=== PATIENT | male | born 1940 | race Two or more races ===

== ENCOUNTER → 2016-06-19 | Outpatient (CLI) | payer MEDICARE, MEDICAID ==
[~2016-06-19] MED LIST: ALP2OP10 BOTH EYES; ASPI325T32 PO; ASPI81TA3 PO; ATEN-51 PO; ATOR10TA65 PO; BUSP10TA2 PO; CAPT25TA3 PO; CHOL10009 PO; DICL2.5D11 BOTH EYES; ESCI5SOL PO; GABA-526 PO; GLU5XL PO; HYDR-905 PO; LINE600T PO; LYRI25 PO; METF850T PO; PANT40TA4 PO; [UNRECOGNIZED DRUG - OTHER]
--- NOTE | 2016-06-19 11:26 | RADRPT ---
PROCEDURE: Limited x-ray of both lower extremities. CLINICAL INDICATION: Bilateral leg pain. TECHNIQUE: Single frontal view of both lower extremities was obtained from the hips to the calves. COMPARISON: None. FINDINGS: There are moderate degenerative changes of the hips with joint space narrowing and osteophytes. The re are moderate degenerative changes of the knees with osteophytes and medial joint compartment narr owing. There is chondrocalcinosis. IMPRESSION: 1. Moderate degenerative changes of the hips and knees. 2. Chondrocalcinosis. RPTAT: QQ .Cristofer Montiel MD, MD Date Time Electronically viewed and signed by .Cristofer Montiel MD, MD on 06/19/2016 11:26 .R/
== END | disposition home or self-care (01) ==
LOC: HKI 10:36
PROVIDERS: ATTEND Orthopaedic Surgery
DX: Z01.818 Encounter for other preprocedural examination (principal); M17.11 Unilateral primary osteoarthritis, right knee; E11.9 Type 2 diabetes mellitus without complications; I10 Essential (primary) hypertension; E78.5 Hyperlipidemia, unspecified; F41.9 Anxiety disorder, unspecified; F32.9 Major depressive disorder, single episode, unspecified
CPT/HCPCS: 77073; 86850; 86870; 86900; 86901; 87081; G0463

== ENCOUNTER 2016-06-25 07:53 | Inpatient (IN) | payer MEDICARE, OTHER ==
[2016-06-25] VITALS (23 sets, daily range): BP systolic 121–194; BP diastolic 55–85; PULSE 55–76; RESP 9–20; Ht 157.5 cm; Wt 77.9 kg
[~2016-06-25] VITALS: Ht 157.5 cm; Wt 77.9 kg
[2016-06-25] MEDS ORDERED: oxyCODONE (CR) 10 MG TAB [oxyCONTIN] X1 DOSE PO ONE (08:00)
[2016-06-25] MEDS ORDERED: LACTATED RINGER'S 1,000 ML IV SCH (08:00)
[2016-06-25] MEDS ORDERED: CEFAZOLIN 2GM/50 ML (PMX) 50 ML X1 BEFORE INCISION IVPB ONE (08:00)
[2016-06-25] MEDS ORDERED: TRANEXAMIC ACID IV ONE (08:00)
[2016-06-25] MEDS ORDERED: CELECOXIB 400 MG PO X1 DOSE PO ONE (08:00)
[2016-06-25] MEDS ORDERED: PAIN COCKTAIL-CEFUROXIME IRR SCH ×7 (08:00)
[2016-06-25] MEDS ORDERED: traMADOL 50 MG TAB X 1 DOSE PO ONE (08:00)
[2016-06-25] MEDS ORDERED: SOD CHLORIDE 0.9% IV ONE (08:00)
[2016-06-25] MEDS ORDERED: TRANEXAMIC ACID 780 MG in SOD CHLORIDE 0.9% 100 ML IVPB SCH (08:00)
[2016-06-25] MEDS ORDERED: BUPIVACAINE LIPOSOME/PF 266 MG/20 ML VIAL INFIL SCH (08:00)
[2016-06-25] MEDS ORDERED: PREGABALIN 300 MG PO X1 PO ONE (08:00)
[2016-06-25] MEDS ORDERED: GLU5XL PO (08:48)
[2016-06-25] MEDS ORDERED: CHOL10009 PO (08:48)
[2016-06-25] MEDS ORDERED: GABA-526 PO (08:48)
[2016-06-25] MEDS ORDERED: DICL2.5D11 BOTH EYES (08:48)
[2016-06-25] MEDS ORDERED: ESCI5SOL PO (08:48)
[2016-06-25] MEDS ORDERED: BUSP10TA2 PO (08:48)
[2016-06-25] MEDS ORDERED: ALP2OP10 BOTH EYES (08:48)
[2016-06-25] MEDS ORDERED: METF850T PO (08:48)
[2016-06-25] MEDS ORDERED: ATOR10TA65 PO (08:48)
[2016-06-25] MEDS ORDERED: ATEN-51 PO (08:48)
[2016-06-25] MEDS ORDERED: CAPT25TA3 PO (08:48)
[2016-06-25] MEDS ORDERED: ASPI81TA3 PO (08:48)
[2016-06-25] MEDS ORDERED: [UNRECOGNIZED DRUG - OTHER] (08:48)
--- NOTE | 2016-06-25 09:57 | HPN ---
Date/Time of Note Date/Time of Note DATE: 06/25/16 TIME: 09:56 Interval H&P Admission Note Pt. seen H&P reviewed: No system changes No change from H&P on 06/15/16 by AMPARO Rivero MD Jun 25, 2016 09:57
[2016-06-25] MEDS ORDERED: SODIUM CL BACTERIOSTATIC 30 ML INJ ONE (10:27)
[2016-06-25] MEDS ORDERED: POLYMYXIN B 500000 UNIT INJ ONE (10:27)
[2016-06-25] MEDS ORDERED: VANCOMYCIN 1 GM INJ ONE ×2 (10:27→10:28)
[2016-06-25] MEDS ORDERED: FENTAnyl 50 MCG/ML VIAL ONE (10:42)
[2016-06-25] MEDS ORDERED: ROCURONIUM 50 MG INJ ONE (10:55)
[2016-06-25] MEDS ORDERED: SUCCINYLCHOLINE CHLORIDE 100 MG/5 ML SYG IV ONE (10:55)
[2016-06-25] MEDS ORDERED: ETOMIDATE 20 MG INJ ONE (10:55)
[2016-06-25] MEDS ORDERED: LIDOCAINE 2% (SDV) 5 ML INJ ONE (10:55)
[2016-06-25] MEDS ORDERED: CEFAZOLIN 1 GM INJ ONE (10:55)
[2016-06-25] MEDS ORDERED: PROPOFOL 100 ML ONE (10:55)
[2016-06-25] MEDS ORDERED: ONDANSETRON 4 MG INJ ONE (11:15)
[2016-06-25] MEDS ORDERED: FAMOTIDINE 20 MG INJ ONE (11:16)
[2016-06-25] MEDS ORDERED: BACITRACIN 50000 UNITS INJ IRR ONE (12:29)
[2016-06-25] MEDS ORDERED: FENTAnyl 50 MCG/ML VIAL IV PRN (12:30)
[2016-06-25] MEDS ORDERED: MEPERIDINE 25 MG INJ IV PRN (12:30)
[2016-06-25] MEDS ORDERED: PROCHLORPERAZINE 10 MG INJ IV PRN (12:30)
[2016-06-25] MEDS ORDERED: HYDROmorphONE (0.2 MG/ML) 10ML SYG IV PRN ×2 (12:30)
[2016-06-25] MEDS ORDERED: DIPHENHYDRAMINE 50 MG INJ IV PRN (12:30)
[2016-06-25] MEDS ORDERED: ONDANSETRON 4 MG INJ IV PRN ×2 (12:30→13:30)
--- NOTE | 2016-06-25 13:15 | OPPN ---
Date/Time of Note Date/Time of Note DATE: 06/25/16 TIME: 13:14 Operative/Procedure Note Dictation # [id number] Pre-Operative Diagnosis Right Knee OA Post-Operative Diagnosis Same Procedure Right TKA Surgeon: AMPARO BLOCK MD Laborer Adjustable Steel Joist: JOSIANE KRAUSE PA-C Anesthesiologist: CASPER PEACOCK MD Findings Severe OA Blood Usage/Administration None Implants/Grafts Depuy Attune TKA Estimated blood loss: 50 - 100 ml's Drains Hemovac x 1 Specimens Bone and soft tissue Complications: None Anesthesia type: spinal AMPARO BLOCK MD Jun 25, 2016 13:15
[2016-06-25] MEDS ORDERED: NA PHOSPHATE/BIPHOS 133 ML ENEMA PR PRN (13:30)
[2016-06-25] MEDS ORDERED: DIPHENHYDRAMINE 25 MG CAP PO PRN (13:30)
[2016-06-25] MEDS ORDERED: NACL 0.9% 3 ML SYG IV SCH (13:30)
[2016-06-25] MEDS ORDERED: oxyCODONE 5 MG TAB PO PRN ×2 (13:30)
[2016-06-25] MEDS ORDERED: ASPIRIN (EC) 325 MG TAB PO ONE (13:30)
[2016-06-25] MEDS ORDERED: BISACODYL 10 MG SUPP PR PRN (13:30)
[2016-06-25] MEDS ORDERED: HYDROmorphONE 1 MG/ML SYG IV PRN (13:30)
[2016-06-25 13:48] LABS: HEMATOCRIT 34.1 % (42.0-52.0); HEMOGLOBIN 11.4 g/dl (14.0-18.0)
--- NOTE | 2016-06-25 13:51 | PN ---
Date/Time of Note Date/Time of Note DATE: 06/25/16 TIME: 13:49 Assessment/Plan Assessment/Plan Assessment/Plan Stable in PACU, s/p right TKA -cont abx -pain meds -ASA/SCDs for DVT prophylaxis -OOB with PT -check AM labs -monitor drain -d/c newman in AM XR of the right knee shows good alignment with no evidence of dislocation Subjective 24 Hr Interval Summary Stable in PACU. Moving all extremities. Denies any pain. Exam/Review of Systems Vital Signs Vitals Vital Signs Date Time Temp Pulse Resp B/P Pulse Ox O2 Delivery O2 Flow Rate FiO2 06/25/16 13:19 98.0 Exam Free Text/Dictation Dressing dry Incision clean, dry, and intact without redness or drainage Thigh soft 5/5 Quadriceps, Tibialis Anterior, EHL, Gastroc, Soleus, Peroneals Normal sensation Palpable DT/PT, CR <2 sec No distal edema JOSIANE KRAUSE PA-C Jun 25, 2016 13:51
[2016-06-25 13:58] LABS: POTASSIUM 4.6 mmol/L (3.5-5.1)
[2016-06-25 14:00] LABS: CREATININE 0.77 mg/dl (0.61-1.24)
[2016-06-25] MEDS ORDERED: GLUCOSE GEL 15 GRAM TUBE BUCCAL PRN (14:00)
[2016-06-25] MEDS ORDERED: GLUCOSE GEL 15 GRAM TUBE PO PRN ×2 (14:00)
[2016-06-25] MEDS ORDERED: DEXTROSE 50% 50 ML SYRINGE IV PRN ×2 (14:00)
[2016-06-25] MEDS ORDERED: BUSPIRONE 10 MG TAB PO PRN (14:00)
[2016-06-25] MEDS ORDERED: GLUCAGON 1 MG INJ IM PRN (14:00)
[2016-06-25 14:01] LABS: CALCIUM 7.9 mg/dl (8.4-10.2)
[2016-06-25] MEDS: CEFAZOLIN 2 GM/50 ML (PMX) 50 ML IVPB SCH ×2 (14:03→21:52)
--- NOTE | 2016-06-25 14:19 | RADRPT ---
PROCEDURE: XR Knee. CLINICAL INDICATION: Status post right knee replacement TECHNIQUE: AP and lateral view of the right knee were obtained. The images reviewed on a PACS wor kstation. COMPARISON: March 20, 2016 FINDINGS: Complete right knee replacement is identified. Prosthetic components are in appropriate position an d alignment. No fractures or destructive lesions are observed. Surgical drain is seen in the knee. Soft tissue air is procedural in nature. IMPRESSION: Status post right knee replacement. Prosthetic components are in appropriate position and alignment . RPTAT: AA .Audi Ford MD, Date Time Electronically viewed and signed by .Audi Ford MD, on 06/25/2016 14:18 .P/
[2016-06-25] MEDS ORDERED: BACITRACIN 50000 UNITS INJ ONE (15:16)
--- NOTE | 2016-06-25 15:51 | CONS ---
DATE OF ADMISSION: 06/25/2016 DATE OF CONSULTATION: 06/25/2016 POSTOPERATIVE MEDICAL CONSULTATIVE NOTE: Dear Dr. Montes: Thank you very much for allowing me to evaluate this 76-year-old male who just underwent right total knee replacement. HISTORICAL EVENTS: As you well know, this patient has had progressive disabling pain involving his right knee and has elected to proceed with surgery. Postoperatively, in recovery, he is comfortable without cough, wheezing, shortness of breath, or chest pain. PAST MEDICAL HISTORY: Includes: 1. Adult onset diabetes. 2. Hypertension. 3. Hyperlipidemia. 4. Abscess. 5. Angioplasty of his lower extremity for peripheral vascular disease. 6. Bilateral cataract surgery. SOCIAL HISTORY: Does not drink alcohol, does not smoke. MEDICATIONS 1. Metformin 500 b.i.d. 2. Gabapentin 400 mg t.i.d. 3. Atenolol 100 mg per day. 4. Escitalopram 5 mg per day. 5. Glipizide 10 mg per day. 6. ____ 100 mg b.i.d. 5. Captopril 100 mg b.i.d. ALLERGIES INCLUDE: Clindamycin. PHYSICAL EXAMINATION: GENERAL: Comfortable appearing male in no acute distress. VITAL SIGNS: BP 110/80, pulse 68, respirations are 20, he was afebrile. EYES: Extraocular muscles were grossly full. NECK: No JVD. LUNGS: Clear. HEART: Rhythm regular, no murmur. No third or fourth sound. ABDOMEN: Nontender. Liver and spleen were not palpable. No masses or tenderness were noted. EXTREMITIES: No edema. IMPRESSION: 1. Stable postop right total knee. 2. History of diabetes. We will continue metformin and use short-acting insulin before meals on a sliding scale. 3. Hypertension. Will continue antihypertensive therapy and monitor BP throughout. 4. We will evaluate daily for signs and symptoms of thromboembolic disease and vascular arterial in sufficiency of the lower extremities. Dictated By: PJ CRAWFORD/ANNALISE Conf#: [id number] DID#: [id number]
--- NOTE | 2016-06-25 15:52 | OPR ---
DATE OF OPERATION: 06/25/2016 DATE: 06/25/2016 PREOPERATIVE DIAGNOSIS: Right knee osteoarthritis. POSTOPERATIVE DIAGNOSIS: Right knee osteoarthritis. OPERATION PERFORMED: Right total knee arthroplasty. SURGEON: Amparo Montes MD RESIDENTIAL PROGRAM WORKER: REAGAN Montague. COMPONENTS USED: DePuy Attune size 7 femur, 7 tibia baseplate, 5 mm polyethylene insert, and a 35 patella button. ANESTHESIA: Spinal plus general endotracheal intubation plus periarticular injection. ANESTHESIOLOGIST: Dr. Renata Lee. TOURNIQUET TIME: 58 minutes. ESTIMATED BLOOD LOSS: 50 mL. INTRAVENOUS FLUIDS: 2200 mL crystalloid. SPECIMENS: Bone and soft tissue. DRAINS: Hemovac x1. COMPLICATIONS: None. INDICATIONS: The patient is a 76-year-old gentleman who has had progressive worsening pain in the right knee with radiographic evidence of severe osteoarthritis. He has failed nonsurgical means of treatment to control his pain including activity modifications, pain medications, intra-articular injections and ambulatory assist devices. Despite these measures, he has had worsening pain and I felt he would benefit from a total knee arthroplasty. The risks, benefits, and alternatives of the procedure were explained in detail to the patient. I explained the risks of the surgery to include but not be limited to, bleeding and possible need for blood transfusion; infection; pain; stiffness; neurovascular injury with possible numbness, weakness, and/or paralysis anywhere from the knee down to the toes; fracture; instability; dislocation; wear and/or loosening of the prosthesis and possible need for future revision; blood clots; pulmonary embolism; and anesthetic complications such as heart attack, stroke, GI bleed, pneumonia, and/or . Ample time was allowed for the patient to ask questions, all of which were addressed and answered. The patient understood the risks involved and wished to proceed. Informed consent was signed prior to the procedure. PROCEDURE: The patient's right knee was initialed with a marking pen in the preoperative area to identify the correct operative site. The patient was brought to the operating room and transferred from the [facility] to the operating table where a spinal anesthetic was administered. The patient was then anesthetized and intubated. A Arzola catheter was placed. A timeout was performed to confirm that the right leg was the correct operative site. The patient was given 2 g of Ancef within one hour prior to the procedure. A tourniquet was placed on the operative proximal thigh. The operative knee and lower extremity were prepped and draped in the usual sterile fashion. The operative lower extremity was elevated and exsanguinated with an Esmarch tourniquet. The proximal thigh tourniquet was inflated to 300 mmHg. The knee was flexed. A midline incision was made and carried down through the subcutaneous tissue and fat with sharp dissection. Limited medial and lateral flaps were raised. A median parapatellar athrotomy approach was performed. Synovial fluid was normal in color and consistency. The patella was everted and the knee flexed. There were severe tricompartmental osteoarthritic changes noted. A medial release was performed at the joint line to the midcoronal plane. The ACL and PCL and remnants of the menisci were excised. The stepped drill was used to open up the femoral canal which was irrigated and sucked dry. The intramedullary guide flaquita was passed up the femur, and the distal cutting block was pinned into place for a 6 degree valgus cut, taking 10 mm of bone off distally. The oscillating saw was used to make the cut. The tibia was subluxed anteriorly. The tibial cutoff jig was placed over the center of the talus distally and over the junction of the medial and middle third of the tibial tubercle proximally. The guide was pinned into place and the oscillating saw was used to make the cut. The tibia was sized. The extension gap was checked and accommodated a 5 mm spacer block with the knee in full extension. There was no varus or valgus instability. At this point, the femur was sized with the posterior referencing guide. Two holes were drilled in 3 degrees of external rotation. The two holes were in line with the transepicondylar axis, perpendicular to Pipestone's line, and in line with the tibial cutoff jig brought up with the knee flexed 90 degrees and tensed with 2 lamina spreaders, suggesting the femoral rotation was correct. The four-in-one cutting block was pinned into place. The anterior and posterior cuts and chamfer cuts were made with the oscillating saw. The flexion gap was checked and accommodated the 5 mm spacer block at 90 degrees. There was no varus or valgus instability, suggesting the flexion and extension gaps were now equal. The central box was cut out on the femur. The tibia was drilled and punched in proper rotation. Trial components were placed into position with a trial insert. The patella was cut down from 25 mm down to 15 mm and sized. Three holes were drilled and the trial button placed in position. With all the trials now in place, the knee was taken through range of motion and came to full extension as evidenced by the fact that with the foot on my abdomen and axial loading, there was no tendency for the knee to flex. The knee was able to be flexed to 125 degrees with good patellar tracking with no lateral tilt or subluxation. At this point, I was satisfied with the overall range of motion, stability, and patellar tracking. The trials were removed. The real components were opened. Two bags of cement were mixed, one with and one without premixed antibiotic. The knee was irrigated with antibiotic saline and sucked dry. Once the cement was in a doughy stage, the real components were cemented into place. The knee was held in full extension, and the patellar component was held with a patellar clamp. All excess cement was removed with curettes. As the cement was hardening, the synovial/capsular layer was infiltrated with a mixture of 150 mg of 0.5% Bupivacaine, 8 mg of Duramorph, 300 mcg of epinephrine, 30 mg of Toradol, 100 mcg of clonidine, 750 mg of cefuroxime and 86 mL of normal saline, followed by an injection of 266 mg of liposomal Bupivacaine. A Hemovac drain was placed in the deep portion of the wound and brought out the anterolateral thigh. Once the cement was completely hardened, the trial liner was removed, and the real insert was opened. The tourniquet was let down, and there was good hemostasis. The knee was then irrigated with a mixture of betadine/saline and then antibiotic saline with pulsatile lavage. The real insert was impacted into the tibia and reduced onto to the femur. The arthrotomy was closed with a few interrupted #1 Ethibond in a figure-of- eight fashion, and then closed in a watertight fashion with a running #2 Stratafix suture. Knee flexion was checked against gravity and came to 125 degrees. The subcutaneous layer was irrigated and closed with 2-0 Statafix, and then 3-0 Statafix and then Prineo Dermabond on the skin. The wound was covered with an occlusive dressing, and secured with cast padding and a bias dressing. The drain was secured with 3-0 nylon. The sponge and needle counts were correct at the end of the case. The patient was then awakened, extubated, and taken to the recovery room in stable condition. DISPOSITION: Patient tolerated the procedure well and was taken to the recovery room in stable condition. Dictated By: AMPARO GONZALEZ/ANNALISE Conf#: [id number] DID#: [id number] [id number]
[2016-06-25] MEDS ORDERED: EXPAREL NOTE (BUPIVICAINE LIPOSOMAL) XX SCH (16:00)
[2016-06-25] MEDS: ATENOLOL 25 MG TAB PO SCH (16:00)
[2016-06-25] MEDS: CHOLECALCIFEROL 1,000 UNIT TAB PO SCH (16:16)
[2016-06-25] MEDS: LACTATED RINGER'S 1,000 ML IV SCH ×3 (16:19→21:54)
[2016-06-25] MEDS: INSULIN ASPART [NOVOLOG] 3 ML PEN SC SCH (17:25)
[2016-06-25] MEDS: ACETAMINOPHEN 1000MG/100ML IV 100 ML IVPB SCH (17:57)
[2016-06-25] MEDS: PANTOPRAZOLE (EC) 40 MG TAB PO SCH (17:57)
[2016-06-25] MEDS: traMADol 50 MG TAB PO SCH (17:57)
[2016-06-25] MEDS: DOCUSATE SODIUM 100 MG CAP PO SCH (20:40)
[2016-06-25] MEDS: ATORVASTATIN 40 MG TAB PO SCH (20:40)
[2016-06-25] MEDS: PREGABALIN 25 MG CAP PO SCH (20:40)
[2016-06-25] MEDS: DICLOFENAC 0.1% 2.5 ML OPH BOTH EYES SCH (20:49)
[2016-06-25] MEDS: BRIMONIDINE 0.2% 5 ML BTL BOTH EYES SCH (21:52)
[2016-06-26] VITALS: BP 101/53; RESP 18
[2016-06-26] MEDS: ACETAMINOPHEN 1000MG/100ML IV 100 ML IVPB SCH ×3 (00:17→12:38)
[2016-06-26] MEDS: traMADol 50 MG TAB PO SCH ×4 (00:17→17:27)
[2016-06-26 04:32] VITALS: BP 104/53; PULSE 58; RESP 18
[2016-06-26 04:57] LABS: HEMATOCRIT 30.3 % (42.0-52.0); HEMOGLOBIN 10.2 g/dl (14.0-18.0)
[2016-06-26 05:14] LABS: CREATININE 0.85 mg/dl (0.61-1.24); MAGNESIUM 1.2 mg/dl (1.7-2.5); PHOSPHORUS 3.8 mg/dl (2.5-4.9)
[2016-06-26 05:15] LABS: CALCIUM 7.5 mg/dl (8.4-10.2)
[2016-06-26 05:25] LABS: POTASSIUM 4.1 mmol/L (3.5-5.1)
[2016-06-26] MEDS: BRIMONIDINE 0.2% 5 ML BTL BOTH EYES SCH ×3 (06:06→22:12)
[2016-06-26] MEDS: PANTOPRAZOLE (EC) 40 MG TAB PO SCH ×2 (06:06→17:26)
[2016-06-26] MEDS: LACTATED RINGER'S 1,000 ML IV SCH ×2 (06:10→21:08)
[2016-06-26] MEDS: CEFAZOLIN 2 GM/50 ML (PMX) 50 ML IVPB SCH (06:36)
[2016-06-26 06:49] LABS: ADD UMIC YES; URINE BILIRUBIN (Dip) NEGATIVE (NEGATIVE); URINE BLOOD (Dip) TRACE (NEGATIVE); URINE COLOR LT. YELLOW (YELLOW); URINE GLUCOSE (Dip) NEGATIVE (NEGATIVE); URINE KETONES (Dip) TRACE (NEGATIVE); URINE LEUKOCYTE ESTERASE (Dip) TRACE (NEGATIVE); URINE NITRITE (Dip) NEGATIVE (NEGATIVE); URINE TOTAL PROTEIN (Dip) NEGATIVE (NEGATIVE); URINE UROBILINOGEN (Dip) 0.2 E.U./dL (0.1-1.0)
[2016-06-26] MEDS: INSULIN ASPART [NOVOLOG] 3 ML PEN SC SCH ×3 (07:20→17:22)
[2016-06-26 07:23] LABS: SQUAMOUS EPITHELIAL CELL,UR FEW
--- NOTE | 2016-06-26 08:04 | PDOCDIS ---
Discharge Instructions DIAGNOSIS Discharge Diagnosis: s/p right TKA CONDITION Patient Condition: Good HOME CARE INSTRUCTIONS: Diet Instructions: Regular ACTIVITY: Activity Restrictions: Slowly Increase Activity Rest between Activity Avoid heavy lifting Do not operate Machinery Do not operate Power Tool Avoid Heavy Housework Keep Limb Elevated Bathing Restrictions: Shower FOLLOW UP/APPOINTMENTS Appointments follow up with Dr. Montes in the office on 07/06/16 OTHER ORDERS: Other Orders: S/P TKA Physical Therapy: Three times per week at home x 2 weeks Daily in Rehab/SNF (if applicable) WB STATUS: WBAT 1. Strengthening exercises for both upper and un-operated lower extremities. 2. Gait training with front wheeled walker 3. Active range of motion exercises to operative knee. 4. When not working on knee range of motion exercises, distal towel roll under operative ankle/distal calf to promote full extension. 5. DO NOT PUT ANYTHING BEHIND OPERATIVE KNEE!!! 6. Quadriceps and hamstring strengthening. 7. May switch to cane in contra lateral hand 6 weeks after surgery. 8. Physical Therapy can open case if nursing is not available. 9. Use Ice Machine as instructed from date of surgery while at rest 3X/day. 10. Patient requires mobile SCDs to reduce risk of developing DVT following TKA. Patient will use the mobile SCDs for 30 days postoperatively. Bathing assistance by home health aide twice weekly if Medicare patient. Occupational Therapy: Evaluation for assistive devices and ADL training. Wound Care: Keep incision dry & covered with Tegaderm until first visit with Dr. Montes Anticoagulation Orders: Enteric Coated Aspirin 325 mg po bid x 6 weeks from date of surgery Follow-up:Call for an appointment with Dr. Montes in 1 week after discharged from hospital at DME Orders: FWW, 3-in-1 Commode, Polar ice machine, Mobile SCDs JOSIANE KRAUSE PA-C Jun 26, 2016 08:04
[2016-06-26] MEDS ORDERED: ASPI325T32 PO (08:06)
[2016-06-26] MEDS ORDERED: HYDR-905 PO (08:06)
[2016-06-26] MEDS ORDERED: PANT40TA4 PO (08:06)
[2016-06-26 08:11] VITALS: BP 110/53; RESP 17
--- NOTE | 2016-06-26 08:30 | CONS ---
Date/Time of Note Date/Time of Note DATE: 06/26/16 TIME: 08:27 Assessment/Plan Assessment/Plan Additional Assessment/Plan 1. Stable postop right total knee, labs rev 2. Hypertension, controlled 3. History of diabetes, sugar acceptable 4. Low mag, will replete Consultation Date/Type/Reason Admit Date/Time Jun 25, 2016 at 07:53 Initial Consult Date Detailed Summary Respiratory: No shortness of breath Cardiovascular: No chest pain Gastrointestinal: no complaints Genitourinary: other (newmna just removed) Musculoskeletal: bone/joint pain (no pain right knee) Exam/Review of Systems Vital Signs Vitals Vital Signs Date Time Temp Pulse Resp B/P Pulse Ox O2 Delivery O2 Flow Rate FiO2 06/26/16 08:11 97.5 54 17 110/53 100 06/26/16 04:32 Nasal Cannula 2.0 Intake and Output 06/25/16 06/25/16 06/26/16 15:00 23:00 07:00 Intake Total 2907.8 ml 700 ml 1980 ml Output Total 160 ml 390 ml 820 ml Balance 2747.8 ml 310 ml 1160 ml Exam Neck: No jvd Respiratory: clear to auscultation Cardiovascular: regular rate and rhythm Gastrointestinal: soft Extremities: No edema (and no calf tend) Results Result Diagram: 06/26/16 0430 06/26/16 0430 Results 24 hrs Laboratory Tests Test 06/25/16 09:31 06/25/16 13:16 06/25/16 13:39 06/25/16 16:52 Bedside Glucose 123 90 62 L Anion Gap 16 Blood Urea Nitrogen 13 Calcium Level 7.9 L Carbon Dioxide Level 24 Chloride Level 106 Creatinine 0.77 Glucose Level 99 Hematocrit 34.1 L Hemoglobin 11.4 L Potassium Level 4.6 Sodium Level 141 Test 06/25/16 17:08 06/25/16 17:21 06/25/16 17:35 06/25/16 17:36 Bedside Glucose 61 L 56 L 66 L Glucose Level 71 Test 06/25/16 17:56 06/25/16 20:39 06/26/16 04:30 06/26/16 05:30 Bedside Glucose 101 185 Anion Gap 12 Blood Urea Nitrogen 13 Calcium Level 7.5 L Carbon Dioxide Level 26 Chloride Level 104 Creatinine 0.85 Glucose Level 139 # Hematocrit 30.3 L Hemoglobin 10.2 L Magnesium Level 1.2 L Phosphorus Level 3.8 Potassium Level 4.1 Sodium Level 138 Urine Bilirubin NEGATIVE Urine Clarity CLEAR Urine Color LT. YELLOW Urine Glucose NEGATIVE Urine Hemoglobin TRACE Urine Ketones TRACE Urine Leukocyte Esterase TRACE H Urine Microscopic RBC 2-5 Urine Microscopic WBC 2-5 Urine Nitrite NEGATIVE Urine Specific [place] 1.025 Urine Squamous Epithelial Cells FEW Urine Total Protein NEGATIVE Urine Urobilinogen 0.2 E.U./dL Urine pH 5.5 Test 06/26/16 07:44 Bedside Glucose 117 Medications Medications Current Medications Miscellaneous Information 1 ea 1 ea NOTE XX ; Start 06/25/16 at 16:00; Stop at 15:59 Lactated Ringer's (Lr) 1,000 ml @ 125 mls/hr Q8H IV Last administered on 06:10; Admin Dose 125 MLS/HR; Start 06/25/16 at 13:08 Celecoxib 200 mg 200 mg DAILY PO ; Start 06/26/16 at 09:00 Acetaminophen (Ofirmev 1000mg/ 100ml Iv) 100 ml @ 400 mls/hr Q6 IVPB Last administered on 06/26/16 06:06; Admin Dose 400 MLS/HR; Start 06/25/16 at 18:00; Stop 06/26/16 at 17:59 Tramadol HCl (Ultram) 50 mg Q6 PO Last administered on 06/26/16 06:06; Admin Dose 50 MG; Start 06/25/16 at 18:00; Stop 06/28/16 at 17:59 Oxycodone HCl (Roxicodone) 5 mg Q4H PRN PO PAIN LEVEL 1-3; Start 06/25/16 at 13: 30 Oxycodone HCl (Roxicodone) 10 mg Q4H PRN PO PAIN LEVEL 4-7; Start 06/25/16 at 13 :30 Hydromorphone HCl (Dilaudid) 1 mg Q3H PRN IV PAIN LEVEL 8-10; Start 06/25/16 at 13:30 Ondansetron HCl (Zofran Inj) 4 mg Q6H PRN IV NAUSEA AND/OR VOMITING; Start 06/25 at 13:30 Bisacodyl (Dulcolax Supp) 10 mg Q12H PRN [place] CONSTIPATION; Start 06/25/16 at 13: 30 Magnesium Hydroxide (Milk Of Mag) 30 ml BID PRN PO CONSTIPATION; Start 06/25/16 at 13:30 Sodium Biphosphate/ Sodium Phosphate (Fleet Enema) 133 ml DAILY PRN [place] CONSTIPATION; Start 06/25/16 at 13:30 Docusate Sodium (Colace) 100 mg BID PO Last administered on 06/25/16 20:40; Admin Dose 100 MG; Start 06/25/16 at 21:00 Diphenhydramine HCl (Benadryl) 25 mg Q6H PRN PO PRURITUS; Start 06/25/16 at 13: 30 Aspirin (Ecotrin) 325 mg BID PO ; Start 06/26/16 at 09:00 Pantoprazole (Protonix Tab) 40 mg BID@,18 PO Last administered on 06/26/16 06 :06; Admin Dose 40 MG; Start 06/25/16 at 18:00 Pregabalin (Lyrica) 50 mg BID PO Last administered on 06/25/16 20:40; Admin Dose 50 MG; Start 06/25/16 at 21:00 Atenolol (Tenormin) 25 mg DAILY PO ; Start 06/25/16 at 16:00 Atorvastatin Calcium (Lipitor) 40 mg QHS PO Last administered on 06/25/16 20:40 ; Admin Dose 40 MG; Start 06/25/16 at 21:00 Brimonidine Tartrate (Alphagan 0.2%) 1 drop Q8 BOTH EYES Last administered on 06:06; Admin Dose 1 DROP; Start 06/25/16 at 22:00 Buspirone HCl (Buspar) 10 mg DAILY PRN PO ANXIETY; Start 06/25/16 at 14:00 Captopril (Capoten) 25 mg TID PO Last administered on 06/25/16 21:53; Admin Dose 25 MG; Start 06/25/16 at 16:00 Cholecalciferol (Vitamin D) 2,000 unit DAILY PO Last administered on 06/25/16 16:16; Admin Dose 2,000 UNIT; Start 06/25/16 at 16:00 Diclofenac Sodium (Voltaren 0.1%) 1 drop BID BOTH EYES Last administered on 06/25 20:49; Admin Dose 1 DROP; Start 06/25/16 at 21:00 Escitalopram Oxalate (Lexapro) 10 mg DAILY PO ; Start 06/26/16 at 09:00 Miscellaneous Information 1 ea NOTE XX ; Start 06/25/16 at 14:00 Glucose (Glutose) 15 gm Q15M PRN PO DECREASED GLUCOSE; Start 06/25/16 at 14:00 Glucose (Glutose) 22.5 gm Q15M PRN PO DECREASED GLUCOSE; Start 06/25/16 at 14:00 Dextrose (D50w Syringe) 25 ml Q15M PRN IV DECREASED GLUCOSE; Start 06/25/16 at 14:00 Dextrose (D50w Syringe) 50 ml Q15M PRN IV DECREASED GLUCOSE; Start 06/25/16 at 14:00 Glucagon (Glucagen) 1 mg Q15M PRN IM DECREASED GLUCOSE; Start 06/25/16 at 14:00 Glucose (Glutose) 15 gm Q15M PRN BUCCAL DECREASED GLUCOSE; Start 06/25/16 at 14: 00 Clonidine (Catapres) 0.1 mg TID PO Last administered on 06/25/16t 18:47; Admin Dose 0.1 MG; Start 06/25/16 at 18:00 PJ ORTA MD Jun 26, 2016 08:30
[2016-06-26] MEDS: metFORMIN 850 MG TAB PO SCH (08:31)
[2016-06-26] MEDS: DOCUSATE SODIUM 100 MG CAP PO SCH ×2 (08:31→20:55)
[2016-06-26] MEDS: CHOLECALCIFEROL 1,000 UNIT TAB PO SCH (08:31)
[2016-06-26] MEDS: ASPIRIN (EC) 325 MG TAB PO SCH ×2 (08:31→20:55)
[2016-06-26] MEDS: ESCITALOPRAM 10 MG TAB PO SCH (08:31)
[2016-06-26] MEDS: CELECOXIB 200 MG CAP PO SCH (08:31)
[2016-06-26] MEDS: DICLOFENAC 0.1% 2.5 ML OPH BOTH EYES SCH ×2 (08:32→20:58)
[2016-06-26] MEDS ORDERED: glipiZIDE (XL) 5 MG TAB PO SCH (09:00)
[2016-06-26] MEDS ORDERED: MAGNESIUM SULFATE 3 GM in SOD CHLORIDE 0.9% 100 ML IVPB ONE (09:00)
[2016-06-26] MEDS: ATENOLOL 25 MG TAB PO SCH (09:00)
--- NOTE | 2016-06-26 09:16 | PN ---
Date/Time of Note Date/Time of Note DATE: 06/26/16 TIME: 09:15 Assessment/Plan Lines/Catheters IV Catheter Type (from Nrsg): Peripheral IV Arzola in Place (from Nrsg): Yes Assessment/Plan Assessment/Plan Stable POD #1 s/p right TKA -d/c abx -pain meds -ASA/SCDs -OOB with PT -check AM labs -encourage incentive spirometry -d/c planning. Family would like him to go to [facility] Subjective 24 Hr Interval Summary Doing well. No acute overnight events. Denies pain. Did not start PT. VSS, afebrile. Patient's family would like him to go to [facility]. Exam/Review of Systems Vital Signs Vitals Vital Signs Date Time Temp Pulse Resp B/P Pulse Ox O2 Delivery O2 Flow Rate FiO2 06/26/16 08:11 97.5 54 17 110/53 100 06/26/16 04:32 Nasal Cannula 2.0 Intake and Output 06/25/16 06/25/16 06/26/16 15:00 23:00 07:00 Intake Total 2907.8 ml 700 ml 1980 ml Output Total 160 ml 390 ml 820 ml Balance 2747.8 ml 310 ml 1160 ml Exam Free Text/Dictation Hemovac: 270cc Dressing dry Incision clean, dry, and intact without redness or drainage Thigh soft 5/5 Quadriceps, Tibialis Anterior, EHL, Gastroc, Soleus, Peroneals Normal sensation Palpable DT/PT, CR <2 sec No distal edema Results Result Diagram: 06/26/1642906/26/16429 OJSIANE KRAUSE PA-C Jun 26, 2016 09:16
[2016-06-26] MEDS: PREGABALIN 25 MG CAP PO SCH ×2 (10:38→20:57)
[2016-06-26 20:00] VITALS: BP 128/58; PULSE 65; RESP 18
[2016-06-26] MEDS: ATORVASTATIN 40 MG TAB PO SCH (20:55)
[2016-06-27] MEDS: traMADol 50 MG TAB PO SCH ×2 (00:15→06:26)
[2016-06-27] MEDS: LACTATED RINGER'S 1,000 ML IV SCH ×3 (05:08→21:08)
[2016-06-27 06:25] LABS: POTASSIUM 4.6 mmol/L (3.5-5.1)
[2016-06-27] MEDS: PANTOPRAZOLE (EC) 40 MG TAB PO SCH ×2 (06:26→18:15)
[2016-06-27 06:27] LABS: CREATININE 0.8 mg/dl (0.61-1.24)
[2016-06-27] MEDS: BRIMONIDINE 0.2% 5 ML BTL BOTH EYES SCH ×3 (06:28→21:33)
[2016-06-27] MEDS: MAGNESIUM HYDROXIDE 30ML CUP PO PRN (06:30)
[2016-06-27 06:50] LABS: HEMATOCRIT 31.1 % (42.0-52.0)
[2016-06-27 07:16] LABS: MAGNESIUM 1.8 mg/dl (1.7-2.5); PHOSPHORUS 2.7 mg/dl (2.5-4.9)
[2016-06-27 07:54] VITALS: BP 187/72; RESP 18
[2016-06-27] MEDS: DICLOFENAC 0.1% 2.5 ML OPH BOTH EYES SCH ×2 (08:19→20:56)
[2016-06-27] MEDS: DOCUSATE SODIUM 100 MG CAP PO SCH ×2 (08:20→21:32)
[2016-06-27] MEDS: CHOLECALCIFEROL 1,000 UNIT TAB PO SCH (08:20)
[2016-06-27] MEDS: ASPIRIN (EC) 325 MG TAB PO SCH ×2 (08:20→20:54)
[2016-06-27] MEDS: metFORMIN 850 MG TAB PO SCH (08:21)
[2016-06-27] MEDS: ESCITALOPRAM 10 MG TAB PO SCH (08:21)
[2016-06-27] MEDS: INSULIN ASPART [NOVOLOG] 3 ML PEN SC SCH ×3 (08:24→18:16)
[2016-06-27] MEDS: ATENOLOL 25 MG TAB PO SCH (08:24)
[2016-06-27] MEDS: CELECOXIB 200 MG CAP PO SCH (08:25)
[2016-06-27] MEDS: PREGABALIN 25 MG CAP PO SCH ×2 (08:27→20:58)
[2016-06-27 10:00] VITALS: BP 132/62; PULSE 65; RESP 18
--- NOTE | 2016-06-27 11:35 | PN ---
Date/Time of Note Date/Time of Note DATE: 06/27/16 TIME: 11:32 Assessment/Plan Lines/Catheters IV Catheter Type (from Nrsg): Peripheral IV Arzola in Place (from Nrsg): Yes Assessment/Plan Assessment/Plan POD # 2. Stable. Slight bruising and redness. -Elevate and ice -Start Vanco -Pain meds (hold ATC Tramadol) -ASA/SCDs -OOB with PT Subjective 24 Hr Interval Summary Resting comfortably but having some pain with ambulation. Daughter at bedside. She thinks he is slightly confused from ATC pain meds but he seems at baseline mental status. Exam/Review of Systems Vital Signs Vitals Vital Signs Date Time Temp Pulse Resp B/P Pulse Ox O2 Delivery O2 Flow Rate FiO2 06/27/16 07:54 98.3 82 18 187/72 97 06/26/16 20:00 Room Air 06/26/16 04:32 2.0 Intake and Output 06/26/16 06/26/16 06/27/16 15:00 23:00 07:00 Intake Total 156 ml 1580 ml 800 ml Output Total 407 ml 1231 ml 668 ml Balance -251 ml 349 ml 132 ml Exam Free Text/Dictation Dressing saturated with blood proximally Incision clean, dry, and intact without active bleeding, no drainage Some surrounding bruising and slight redness 5/5 Tibialis Anterior, EHL, Gastroc Soleus, Peroneals Normal sensation Palpable DP/PT, CR < 2 Sec No distal edema Results Result Diagram: 06/27/1641906/27/16419 AMPARO BLOCK MD Jun 27, 2016 11:35
[2016-06-27] MEDS ORDERED: traMADol 50 MG TAB PO PRN (12:00)
[2016-06-27] MEDS ORDERED: VANCOMYCIN IV PER PHARMACY XX SCH (12:00)
[2016-06-27] MEDS ORDERED: VANCOMYCIN 1.5 GM in SOD CHLORIDE 0.9% 250 ML IVPB SCH (13:00)
[2016-06-27] MEDS: HYDROCODONE/APAP (5/325) TAB PO PRN ×2 (13:37→21:40)
[2016-06-27 20:34] VITALS: BP 138/64; RESP 20
[2016-06-27] MEDS: ATORVASTATIN 40 MG TAB PO SCH (20:55)
--- NOTE | 2016-06-27 21:10 | CONS ---
Date/Time of Note Date/Time of Note DATE: 06/27/16 TIME: 21:08 Assessment/Plan Assessment/Plan Additional Assessment/Plan Sleeping but arousable, pain controlled 1. Stable postop right total knee, labs reviewed, anticoag & pain management per ortho 2. Hypertension, controlled 3. History of diabetes, sugar acceptable 4. Low mag, will replete 5. anemia, post op, stable, monitor Coverage For Dr. Roxie Hall MD Internal Medicine Consultation Date/Type/Reason Admit Date/Time Jun 25, 2016 at 07:53 Initial Consult Date Type of Consultation: Internal medicine Exam/Review of Systems Vital Signs Vitals Vital Signs Date Time Temp Pulse Resp B/P Pulse Ox O2 Delivery O2 Flow Rate FiO2 06/27/16 20:34 98.4 95 20 138/64 95 06/27/16 10:00 Room Air 06/26/16 04:32 2.0 Intake and Output 06/26/16 06/26/16 06/27/16 15:00 23:00 07:00 Intake Total 156 ml 1580 ml 800 ml Output Total 407 ml 1231 ml 668 ml Balance -251 ml 349 ml 132 ml Exam Constitutional: alert, oriented Head: atraumatic, normocephalic Eyes: EOMI Neck: non-tender, supple Respiratory: clear to auscultation Cardiovascular: nl pulses, regular rate and rhythm Gastrointestinal: non-tender, soft 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, nl mental status Results Result Diagram: 06/27/16 0420 06/27/16 0420 Results 24 hrs Laboratory Tests Test 06/27/16 04:20 06/27/16 07:55 06/27/16 12:03 06/27/16 17:55 Anion Gap 12 Blood Urea Nitrogen 14 Calcium Level 8.0 L Carbon Dioxide Level 29 Chloride Level 103 Creatinine 0.80 Glucose Level 137 Hematocrit 31.1 L Hemoglobin 10.0 L Magnesium Level 1.8 Phosphorus Level 2.7 Potassium Level 4.6 Sodium Level 139 Bedside Glucose 160 196 228 H Medications Medications Current Medications Miscellaneous Information 1 ea 1 ea NOTE XX ; Start 06/25/16 at 16:00; Stop at 15:59 Lactated Ringer's (Lr) 1,000 ml @ 125 mls/hr Q8H IV Last administered on t 13:29; Admin Dose 125 MLS/HR; Start 06/25/16 at 13:08 Celecoxib (Celebrex) 200 mg DAILY PO Last administered on 06/27/16 08:25; Admin Dose 200 MG; Start 06/26/16 at 09:00 Hydromorphone HCl (Dilaudid) 1 mg Q3H PRN IV PAIN LEVEL 8-10; Start 06/25/16 at 13:30 Ondansetron HCl (Zofran Inj) 4 mg Q6H PRN IV NAUSEA AND/OR VOMITING; Start 06/25 at 13:30 Bisacodyl (Dulcolax Supp) 10 mg Q12H PRN [place] CONSTIPATION; Start 06/25/16 at 13: 30 Magnesium Hydroxide (Milk Of Mag) 30 ml BID PRN PO CONSTIPATION Last administered on 06/27/16 06:30; Admin Dose 30 ML; Start 06/25/16 at 13:30 Sodium Biphosphate/ Sodium Phosphate (Fleet Enema) 133 ml DAILY PRN [place] CONSTIPATION; Start 06/25/16 at 13:30 Docusate Sodium (Colace) 100 mg BID PO Last administered on 06/27/16 08:20; Admin Dose 100 MG; Start 06/25/16 at 21:00 Diphenhydramine HCl (Benadryl) 25 mg Q6H PRN PO PRURITUS; Start 06/25/16 at 13: 30 Aspirin (Ecotrin) 325 mg BID PO Last administered on 06/27/16 20:54; Admin Dose 325 MG; Start 06/26/16 at 09:00 Pantoprazole (Protonix Tab) 40 mg BID@18 PO Last administered on 06/27/16 18 :15; Admin Dose 40 MG; Start 06/25/16 at 18:00 Pregabalin (Lyrica) 50 mg BID PO Last administered on 06/27/16 20:58; Admin Dose 50 MG; Start 06/25/16 at 21:00 Atenolol (Tenormin) 25 mg DAILY PO Last administered on 06/27/16 08:24; Admin Dose 25 MG; Start 06/25/16 at 16:00 Atorvastatin Calcium (Lipitor) 40 mg QHS PO Last administered on 06/27/16 20:55 ; Admin Dose 40 MG; Start 06/25/16 at 21:00 Brimonidine Tartrate (Alphagan 0.2%) 1 drop Q8 BOTH EYES Last administered on 13:29; Admin Dose 1 DROP; Start 06/25/16 at 22:00 Buspirone HCl (Buspar) 10 mg DAILY PRN PO ANXIETY; Start 06/25/16 at 14:00 Captopril (Capoten) 25 mg TID PO Last administered on 06/27/16 20:55; Admin Dose 25 MG; Start 06/25/16 at 16:00 Cholecalciferol (Vitamin D) 2,000 unit DAILY PO Last administered on 06/27/16 08:20; Admin Dose 2,000 UNIT; Start 06/25/16 at 16:00 Diclofenac Sodium (Voltaren 0.1%) 1 drop BID BOTH EYES Last administered on 06/27 20:56; Admin Dose 1 DROP; Start 06/25/16 at 21:00 Escitalopram Oxalate (Lexapro) 10 mg DAILY PO Last administered on 06/27/16 08: 21; Admin Dose 10 MG; Start 06/26/16 at 09:00 Miscellaneous Information 1 ea NOTE XX ; Start 06/25/16 at 14:00 Glucose (Glutose) 15 gm Q15M PRN PO DECREASED GLUCOSE; Start 06/25/16 at 14:00 Glucose (Glutose) 22.5 gm Q15M PRN PO DECREASED GLUCOSE; Start 06/25/16 at 14:00 Dextrose (D50w Syringe) 25 ml Q15M PRN IV DECREASED GLUCOSE; Start 06/25/16 at 14:00 Dextrose (D50w Syringe) 50 ml Q15M PRN IV DECREASED GLUCOSE; Start 06/25/16 at 14:00 Glucagon (Glucagen) 1 mg Q15M PRN IM DECREASED GLUCOSE; Start 06/25/16 at 14:00 Glucose (Glutose) 15 gm Q15M PRN BUCCAL DECREASED GLUCOSE; Start 06/25/16 at 14: 00 Clonidine (Catapres) 0.1 mg TID PO Last administered on 06/27/16 13:19; Admin Dose 0.1 MG; Start 06/25/16 at 18:00 Tramadol HCl (Ultram) 50 mg Q6 PRN PO MILD PAIN LEVEL 1-3; Start 2/4/17 at 12: 00 Acetaminophen/ Hydrocodone Bitart 1 tab 1 tab Q6H PRN PO MODERATE PAIN LEVEL 4- 6 Last administered on 06/27/16t 13:37; Admin Dose 1 TAB; Start 06/27/16 at 12:00 Vancomycin HCl/ Sodium Chloride (Vancocin/NS) 250 ml @ 83.333 mls/ hr Q24H IVPB ; Start 06/28/16 at 13:00 SOFÍA HALL MD Jun 27, 2016 21:10
[2016-06-28] MEDS: HYDROCODONE/APAP (5/325) TAB PO PRN ×2 (05:05→21:46)
[2016-06-28] MEDS: LACTATED RINGER'S 1,000 ML IV SCH ×3 (05:08→21:08)
[2016-06-28 06:06] LABS: POTASSIUM 4.9 mmol/L (3.5-5.1)
[2016-06-28 06:09] LABS: CREATININE 0.69 mg/dl (0.61-1.24); EOSINOPHILS # 0.1 10^3/ul (0.0-0.5); EOSINOPHILS % 1.4 % (0.0-7.0); HEMATOCRIT 29.7 % (42.0-52.0); HEMOGLOBIN 10.1 g/dl (14.0-18.0); LYMPHOCYTES # 0.7 10^3/ul (0.8-2.9); LYMPHOCYTES % 9.6 % (15.0-51.0); MEAN CORPUSCULAR HEMOGLOBIN 31.1 pg (29.0-33.0); MEAN CORPUSCULAR HGB CONC 33.9 g/dl (32.0-37.0); MEAN CORPUSCULAR VOLUME 91.6 fl (82.0-101.0); MEAN PLATELET VOLUME 9.7 fl (7.4-10.4); MONOCYTE # 0.7 10^3/ul (0.3-0.9); NEUTROPHIL # 5.4 10^3/ul (1.6-7.5); PLATELET COUNT 130 10^3/UL (140-440); RED BLOOD COUNT 3.24 10^6/ul (4.70-6.10); RED CELL DISTRIBUTION WIDTH 13.9 % (11.5-14.5); UNCORRECTED WBC 6.9 10^3/ul (4.8-10.8); WHITE BLOOD COUNT 6.9 10^3/ul (4.8-10.8)
[2016-06-28 06:10] LABS: CALCIUM 8.5 mg/dl (8.4-10.2)
[2016-06-28] MEDS: BRIMONIDINE 0.2% 5 ML BTL BOTH EYES SCH ×3 (06:14→21:49)
[2016-06-28] MEDS: PANTOPRAZOLE (EC) 40 MG TAB PO SCH ×2 (06:14→17:48)
[2016-06-28] MEDS: MAGNESIUM HYDROXIDE 30ML CUP PO PRN (06:19)
[2016-06-28 06:29] LABS: CONDITION 1
[2016-06-28 07:48] VITALS: BP 124/60; RESP 18
[2016-06-28] MEDS: CELECOXIB 200 MG CAP PO SCH (08:40)
[2016-06-28] MEDS: DOCUSATE SODIUM 100 MG CAP PO SCH ×2 (08:40→21:45)
[2016-06-28] MEDS: ESCITALOPRAM 10 MG TAB PO SCH (08:41)
[2016-06-28] MEDS: ATENOLOL 25 MG TAB PO SCH (08:41)
[2016-06-28] MEDS: metFORMIN 850 MG TAB PO SCH (08:41)
[2016-06-28] MEDS: CHOLECALCIFEROL 1,000 UNIT TAB PO SCH (08:41)
[2016-06-28] MEDS: PREGABALIN 25 MG CAP PO SCH ×2 (08:41→21:48)
[2016-06-28] MEDS: ASPIRIN (EC) 325 MG TAB PO SCH ×2 (08:41→21:46)
[2016-06-28] MEDS: INSULIN ASPART [NOVOLOG] 3 ML PEN SC SCH ×3 (08:44→17:26)
[2016-06-28] MEDS: DICLOFENAC 0.1% 2.5 ML OPH BOTH EYES SCH ×2 (08:46→21:45)
--- NOTE | 2016-06-28 08:51 | PN ---
Date/Time of Note Date/Time of Note DATE: 06/28/16 TIME: 08:50 Assessment/Plan Lines/Catheters IV Catheter Type (from Nrsg): Peripheral IV Arzola in Place (from Nrsg): Yes Assessment/Plan Assessment/Plan POD # 3. Improving. -Elevate right LE to help decrease swelling -Continue Vanco -Pain meds -OOB with PT -ASA/SCDs -Possible transfer to SNF tomorrow or Wednesday Subjective 24 Hr Interval Summary Comfortable. Daughter at bedside. Minimal pain. Tolerating Vanco. Exam/Review of Systems Vital Signs Vitals Vital Signs Date Time Temp Pulse Resp B/P Pulse Ox O2 Delivery O2 Flow Rate FiO2 06/28/16 07:48 98.0 77 18 124/60 96 06/27/16 10:00 Room Air 06/26/16 04:32 2.0 Intake and Output 06/27/16 06/27/16 06/28/16 15:00 23:00 07:00 Intake Total 2210 ml 900 ml Output Total 500 ml 1200 ml Balance 1710 ml -300 ml Exam Free Text/Dictation Dressing dry Incision clean, dry, and intact. No drainage Surrounding ecchymoses. Redness diminished. 09/25 Tibialis Anterior, EHL, Gastroc Soleus, Peroneals Normal sensation Palpable DP/PT, CR < 2 Sec No distal edema Results Result Diagram: 06/28/168 06/28/16427 AMPARO BLOCK MD Jun 28, 2016 08:51
[2016-06-28] MEDS: VANCOMYCIN 1.25 GM in SOD CHLORIDE 0.9% 250 ML IVPB SCH (13:52)
--- NOTE | 2016-06-28 17:17 | CONS ---
Date/Time of Note Date/Time of Note DATE: 06/28/16 TIME: 17:15 Assessment/Plan Assessment/Plan Additional Assessment/Plan Sleeping but arousable, pain controlled 1. Stable postop right total knee, labs reviewed, anticoag & pain management per ortho 2. Hypertension, controlled 3. History of diabetes, sugar acceptable 4. Low mag, will replete 5. anemia, post op, stable, monitor 6. Hyperglycemia: increase metformin to 1000mg po bid, consider adding glipazide 10mg bid if not controlled d/c planning to SNF per ortho Coverage For Dr. Roxie Hall MD Internal Medicine Consultation Date/Type/Reason Admit Date/Time Jun 25, 2016 at 07:53 Type of Consultation: Internal medicine 24 HR Interval Summary Free Text/Dictation No acute issues per RN dressing leaked, changed seen by ortho Constitutional: improved, no complaints Exam/Review of Systems Vital Signs Vitals Vital Signs Date Time Temp Pulse Resp B/P Pulse Ox O2 Delivery O2 Flow Rate FiO2 06/28/16 07:48 98.0 77 18 124/60 96 06/27/16 10:00 Room Air 06/26/16 04:32 2.0 Intake and Output 06/27/16 06/27/16 06/28/16 15:00 23:00 07:00 Intake Total 2210 ml 900 ml Output Total 500 ml 1200 ml Balance 1710 ml -300 ml Exam Constitutional: alert, oriented Neck: supple Cardiovascular: nl pulses, regular rate and rhythm Gastrointestinal: nl liver, spleen, soft Extremities: normal pulses 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 Results Result Diagram: 06/28/16 0428 06/28/16 0428 Results 24 hrs Laboratory Tests Test 06/27/16 17:55 06/28/16 04:28 06/28/16 08:21 06/28/16 12:32 Bedside Glucose 228 H 162 245 H Anion Gap 16 Basophils # 0.0 Basophils % 0.0 Blood Urea Nitrogen 12 Calcium Level 8.5 Carbon Dioxide Level 26 Chloride Level 103 Creatinine 0.69 Eosinophils # 0.1 Eosinophils % 1.4 Glucose Level 208 Hematocrit 29.7 L Hemoglobin 10.1 L Lymphocytes # 0.7 L Lymphocytes % 9.6 L Mean Corpuscular Hemoglobin 31.1 Mean Corpuscular Hemoglobin Concent 33.9 Mean Corpuscular Volume 91.6 Mean Platelet Volume 9.7 Monocytes # 0.7 Monocytes % 10.0 Neutrophils # 5.4 Neutrophils % 79.0 H Nucleated Red Blood Cells # 0.0 Nucleated Red Blood Cells % 0.0 Platelet Count 130 L Potassium Level 4.9 Red Blood Count 3.24 L Red Cell Distribution Width 13.9 Sodium Level 140 White Blood Count 6.9 Test 06/28/16 16:58 Bedside Glucose 240 H Medications Medications Current Medications Miscellaneous Information 1 ea 1 ea NOTE XX ; Start 06/25/16 at 16:00; Stop at 15:59 Lactated Ringer's (Lr) 1,000 ml @ 125 mls/hr Q8H IV Last administered on 13:29; Admin Dose 125 MLS/HR; Start 06/25/16 at 13:08 Celecoxib (Celebrex) 200 mg DAILY PO Last administered on 06/28/16 08:40; Admin Dose 200 MG; Start 06/26/16 at 09:00 Hydromorphone HCl (Dilaudid) 1 mg Q3H PRN IV PAIN LEVEL 8-10; Start 06/25/16 at 13:30 Ondansetron HCl (Zofran Inj) 4 mg Q6H PRN IV NAUSEA AND/OR VOMITING; Start 06/25 at 13:30 Bisacodyl (Dulcolax Supp) 10 mg Q12H PRN [place] CONSTIPATION; Start 06/25/16 at 13: 30 Magnesium Hydroxide (Milk Of Mag) 30 ml BID PRN PO CONSTIPATION Last administered on 06/28/16 06:19; Admin Dose 30 ML; Start 06/25/16 at 13:30 Sodium Biphosphate/ Sodium Phosphate (Fleet Enema) 133 ml DAILY PRN [place] CONSTIPATION; Start 06/25/16 at 13:30 Docusate Sodium (Colace) 100 mg BID PO Last administered on 06/28/16 08:40; Admin Dose 100 MG; Start 06/25/16 at 21:00 Diphenhydramine HCl (Benadryl) 25 mg Q6H PRN PO PRURITUS; Start 06/25/16 at 13: 30 Aspirin (Ecotrin) 325 mg BID PO Last administered on 06/28/16 08:41; Admin Dose 325 MG; Start 06/26/16 at 09:00 Pantoprazole (Protonix Tab) 40 mg BID@,18 PO Last administered on 06/28/16 06 :14; Admin Dose 40 MG; Start 06/25/16 at 18:00 Pregabalin (Lyrica) 50 mg BID PO Last administered on 06/28/16 08:41; Admin Dose 50 MG; Start 06/25/16 at 21:00 Atenolol (Tenormin) 25 mg DAILY PO Last administered on 06/28/16 08:41; Admin Dose 25 MG; Start 06/25/16 at 16:00 Atorvastatin Calcium (Lipitor) 40 mg QHS PO Last administered on 06/27/16 20:55 ; Admin Dose 40 MG; Start 06/25/16 at 21:00 Brimonidine Tartrate (Alphagan 0.2%) 1 drop Q8 BOTH EYES Last administered on 13:53; Admin Dose 1 DROP; Start 06/25/16 at 22:00 Buspirone HCl (Buspar) 10 mg DAILY PRN PO ANXIETY; Start 06/25/16 at 14:00 Captopril (Capoten) 25 mg TID PO Last administered on 06/28/16 13:52; Admin Dose 25 MG; Start 06/25/16 at 16:00 Cholecalciferol (Vitamin D) 2,000 unit DAILY PO Last administered on 06/28/16 08:41; Admin Dose 2,000 UNIT; Start 06/25/16 at 16:00 Diclofenac Sodium (Voltaren 0.1%) 1 drop BID BOTH EYES Last administered on 06/28 08:46; Admin Dose 1 DROP; Start 06/25/16 at 21:00 Escitalopram Oxalate (Lexapro) 10 mg DAILY PO Last administered on 06/28/16 08: 41; Admin Dose 10 MG; Start 06/26/16 at 09:00 Miscellaneous Information 1 ea NOTE XX ; Start 06/25/16 at 14:00 Glucose (Glutose) 15 gm Q15M PRN PO DECREASED GLUCOSE; Start 06/25/16 at 14:00 Glucose (Glutose) 22.5 gm Q15M PRN PO DECREASED GLUCOSE; Start 06/25/16 at 14:00 Dextrose (D50w Syringe) 25 ml Q15M PRN IV DECREASED GLUCOSE; Start 06/25/16 at 14:00 Dextrose (D50w Syringe) 50 ml Q15M PRN IV DECREASED GLUCOSE; Start 06/25/16 at 14:00 Glucagon (Glucagen) 1 mg Q15M PRN IM DECREASED GLUCOSE; Start 06/25/16 at 14:00 Glucose (Glutose) 15 gm Q15M PRN BUCCAL DECREASED GLUCOSE; Start 06/25/16 at 14: 00 Clonidine (Catapres) 0.1 mg TID PO Last administered on 06/27/16 13:19; Admin Dose 0.1 MG; Start 06/25/16 at 18:00 Tramadol HCl (Ultram) 50 mg Q6 PRN PO MILD PAIN LEVEL 1-3; Start 06/27/16 at 12: 00 Acetaminophen/ Hydrocodone Bitart 1 tab 1 tab Q6H PRN PO MODERATE PAIN LEVEL 4- 6 Last administered on 06/28/16 05:05; Admin Dose 1 TAB; Start 06/27/16 at 12:00 Vancomycin HCl/ Sodium Chloride (Vancocin/NS) 250 ml @ 83.333 mls/ hr Q24H IVPB Last administered on 06/28/16 13:52; Admin Dose 83.333 MLS/HR; Start at 13:00 SOFÍA HALL MD Jun 28, 2016 17:17
[2016-06-28] MEDS: metFORMIN 500 MG TAB PO SCH (17:47)
[2016-06-28 19:43] VITALS: BP 131/90; RESP 20
[2016-06-28] MEDS: ATORVASTATIN 40 MG TAB PO SCH (21:46)
[2016-06-29] MEDS: LACTATED RINGER'S 1,000 ML IV SCH (05:08)
[2016-06-29 05:30] LABS: BASOPHILS % 0.3 % (0.0-2.0); EOSINOPHILS # 0.2 10^3/ul (0.0-0.5); EOSINOPHILS % 3.3 % (0.0-7.0); HEMATOCRIT 25.5 % (42.0-52.0); HEMOGLOBIN 8.6 g/dl (14.0-18.0); LYMPHOCYTES % 15.3 % (15.0-51.0); MEAN CORPUSCULAR HEMOGLOBIN 30.8 pg (29.0-33.0); MEAN CORPUSCULAR HGB CONC 33.6 g/dl (32.0-37.0); MEAN CORPUSCULAR VOLUME 91.8 fl (82.0-101.0); MONOCYTE # 0.8 10^3/ul (0.3-0.9); MONOCYTES % 13.4 % (0.0-11.0); NEUTROPHIL # 4.3 10^3/ul (1.6-7.5); NEUTROPHILS % 67.7 % (39.0-77.0); PLATELET COUNT 123 10^3/UL (140-440); RED BLOOD COUNT 2.78 10^6/ul (4.70-6.10); RED CELL DISTRIBUTION WIDTH 14.2 % (11.5-14.5); UNCORRECTED WBC 6.3 10^3/ul (4.8-10.8); WHITE BLOOD COUNT 6.3 10^3/ul (4.8-10.8)
[2016-06-29 05:30] LABS: ALBUMIN 2.4 g/dl (3.3-4.9)
[2016-06-29 05:31] LABS: POTASSIUM 4.7 mmol/L (3.5-5.1)
[2016-06-29 05:33] LABS: MAGNESIUM 1.7 mg/dl (1.7-2.5); PHOSPHORUS 2.6 mg/dl (2.5-4.9)
[2016-06-29 05:34] LABS: CREATININE 0.75 mg/dl (0.61-1.24)
[2016-06-29 05:35] LABS: CALCIUM 8.1 mg/dl (8.4-10.2)
[2016-06-29] MEDS: MAGNESIUM HYDROXIDE 30ML CUP PO PRN (05:39)
[2016-06-29] MEDS: BRIMONIDINE 0.2% 5 ML BTL BOTH EYES SCH ×3 (05:39→21:53)
[2016-06-29] MEDS: PANTOPRAZOLE (EC) 40 MG TAB PO SCH ×2 (05:39→17:34)
[2016-06-29 05:40] LABS: CONDITION 1
[2016-06-29 08:28] VITALS: BP 143/63; RESP 18
[2016-06-29] MEDS ORDERED: POTASSIUM CHLORIDE (SR) 10 MEQ TAB PO ONE (08:30)
[2016-06-29] MEDS ORDERED: LACTULOSE 30ML CUP PO ONE (08:30)
[2016-06-29] MEDS ORDERED: FUROSEMIDE 40 MG INJ IV ONE (08:30)
--- NOTE | 2016-06-29 08:41 | CONS ---
Date/Time of Note Date/Time of Note DATE: 06/29/16 TIME: 08:37 Assessment/Plan Assessment/Plan Additional Assessment/Plan 1. Post op right knee replacement, sl swelling and ecchymoses, nivvs ordered 2. Anemia, will observe, may be in part related to volume expansion, given lasix 3. DM, control not optimal, resumed glipizide 4. BP well controlled. Consultation Date/Type/Reason Admit Date/Time Jun 25, 2016 at 07:53 Type of Consultation: Internal medicine Detailed Summary Respiratory: No cough, No shortness of breath Cardiovascular: no complaints Gastrointestinal: other (no bm), No pain, No vomiting Genitourinary: no complaints Musculoskeletal: bone/joint pain (mild right knee pain) Exam/Review of Systems Vital Signs Vitals Vital Signs Date Time Temp Pulse Resp B/P Pulse Ox O2 Delivery O2 Flow Rate FiO2 06/29/16 08:28 97.8 75 18 143/63 99 06/28/16 20:00 2.0 06/27/16 10:00 Room Air Intake and Output 06/28/16 06/28/16 06/29/16 15:00 23:00 07:00 Intake Total 1050 ml 480 ml Output Total 650 ml 540 ml Balance 400 ml -60 ml Exam Neck: No jvd Respiratory: clear to auscultation Cardiovascular: regular rate and rhythm Gastrointestinal: soft Musculoskeletal: joint tenderness, other (right knee is warm and echymoses noted) Extremities: edema (no pitting foot edema but bilat sacral edema) Results Result Diagram: 06/29/16 0430 06/29/16 0420 Results 24 hrs Laboratory Tests Test 06/28/16 12:32 06/28/16 16:58 06/28/16 20:08 06/29/16 04:20 Bedside Glucose 245 H 240 H 201 Albumin 2.4 L Anion Gap 11 Blood Urea Nitrogen 11 Calcium Level 8.1 L Carbon Dioxide Level 28 Chloride Level 105 Creatinine 0.75 Glucose Level 138 # Magnesium Level 1.7 Phosphorus Level 2.6 Potassium Level 4.7 Sodium Level 139 Test 06/29/16 04:30 06/29/16 07:30 Basophils # 0.0 Basophils % 0.3 Eosinophils # 0.2 Eosinophils % 3.3 Hematocrit 25.5 L Hemoglobin 8.6 L Lymphocytes # 1.0 Lymphocytes % 15.3 Mean Corpuscular Hemoglobin 30.8 Mean Corpuscular Hemoglobin Concent 33.6 Mean Corpuscular Volume 91.8 Mean Platelet Volume 9.0 Monocytes # 0.8 Monocytes % 13.4 H Neutrophils # 4.3 Neutrophils % 67.7 Nucleated Red Blood Cells # 0.0 Nucleated Red Blood Cells % 0.0 Platelet Count 123 L Red Blood Count 2.78 L Red Cell Distribution Width 14.2 White Blood Count 6.3 Bedside Glucose 174 Medications Medications Current Medications Miscellaneous Information 1 ea NOTE XX ; Start 06/25/16 at 16:00; Stop 06/29/16 at 15:59 Celecoxib (Celebrex) 200 mg DAILY PO Last administered on 06/28/16 08:40; Admin Dose 200 MG; Start 06/26/16 at 09:00 Hydromorphone HCl (Dilaudid) 1 mg Q3H PRN IV PAIN LEVEL 8-10; Start 06/25/16 at 13:30 Ondansetron HCl (Zofran Inj) 4 mg Q6H PRN IV NAUSEA AND/OR VOMITING; Start 06/25 at 13:30 Bisacodyl (Dulcolax Supp) 10 mg Q12H PRN [place] CONSTIPATION; Start 06/25/16 at 13: 30 Magnesium Hydroxide (Milk Of Mag) 30 ml BID PRN PO CONSTIPATION Last administered on 06/29/16 05:39; Admin Dose 30 ML; Start 06/25/16 at 13:30 Sodium Biphosphate/ Sodium Phosphate (Fleet Enema) 133 ml DAILY PRN [place] CONSTIPATION; Start 06/25/16 at 13:30 Docusate Sodium (Colace) 100 mg BID PO Last administered on 06/28/16 21:45; Admin Dose 100 MG; Start 06/25/16 at 21:00 Diphenhydramine HCl (Benadryl) 25 mg Q6H PRN PO PRURITUS; Start 06/25/16 at 13: 30 Aspirin (Ecotrin) 325 mg BID PO Last administered on 06/28/16 21:46; Admin Dose 325 MG; Start 06/26/16 at 09:00 Pantoprazole (Protonix Tab) 40 mg BID@06,18 PO Last administered on 06/29/16 05 :39; Admin Dose 40 MG; Start 06/25/16 at 18:00 Pregabalin (Lyrica) 50 mg BID PO Last administered on 06/28/16 21:48; Admin Dose 50 MG; Start 06/25/16 at 21:00 Atenolol (Tenormin) 25 mg DAILY PO Last administered on 06/28/16 08:41; Admin Dose 25 MG; Start 06/25/16 at 16:00 Atorvastatin Calcium (Lipitor) 40 mg QHS PO Last administered on 06/28/16 21:46 ; Admin Dose 40 MG; Start 06/25/16 at 21:00 Brimonidine Tartrate (Alphagan 0.2%) 1 drop Q8 BOTH EYES Last administered on 05:39; Admin Dose 1 DROP; Start 06/25/16 at 22:00 Buspirone HCl (Buspar) 10 mg DAILY PRN PO ANXIETY; Start 06/25/16 at 14:00 Captopril (Capoten) 25 mg TID PO Last administered on 06/28/16 21:46; Admin Dose 25 MG; Start 06/25/16 at 16:00 Cholecalciferol (Vitamin D) 2,000 unit DAILY PO Last administered on 06/28/16 08:41; Admin Dose 2,000 UNIT; Start 06/25/16 at 16:00 Diclofenac Sodium (Voltaren 0.1%) 1 drop BID BOTH EYES Last administered on 06/28 21:45; Admin Dose 1 DROP; Start 06/25/16 at 21:00 Escitalopram Oxalate (Lexapro) 10 mg DAILY PO Last administered on 06/28/16 08: 41; Admin Dose 10 MG; Start 06/26/16 at 09:00 Miscellaneous Information 1 ea NOTE XX ; Start 06/25/16 at 14:00 Glucose (Glutose) 15 gm Q15M PRN PO DECREASED GLUCOSE; Start 06/25/16 at 14:00 Glucose (Glutose) 22.5 gm Q15M PRN PO DECREASED GLUCOSE; Start 06/25/16 at 14:00 Dextrose (D50w Syringe) 25 ml Q15M PRN IV DECREASED GLUCOSE; Start 06/25/16 at 14:00 Dextrose (D50w Syringe) 50 ml Q15M PRN IV DECREASED GLUCOSE; Start 06/25/16 at 14:00 Glucagon (Glucagen) 1 mg Q15M PRN IM DECREASED GLUCOSE; Start 06/25/16 at 14:00 Glucose (Glutose) 15 gm Q15M PRN BUCCAL DECREASED GLUCOSE; Start 06/25/16 at 14: 00 Clonidine (Catapres) 0.1 mg TID PO Last administered on 06/27/16 13:19; Admin Dose 0.1 MG; Start 06/25/16 at 18:00 Tramadol HCl (Ultram) 50 mg Q6 PRN PO MILD PAIN LEVEL 1-3; Start 06/27/16 at 12: 00 Acetaminophen/ Hydrocodone Bitart 1 tab 1 tab Q6H PRN PO MODERATE PAIN LEVEL 4- 6 Last administered on 06/28/16 21:46; Admin Dose 1 TAB; Start 06/27/16 at 12:00 Vancomycin HCl/ Sodium Chloride (Vancocin/NS) 250 ml @ 83.333 mls/ hr Q24H IVPB Last administered on 06/28/16 13:52; Admin Dose 83.333 MLS/HR; Start at 13:00 Furosemide (Lasix) 40 mg ONCE ONCE IV ; Start 06/29/16 at 08:30; Stop 06/29/16 at 08:31; Status UNV Potassium Chloride (Klor-Con 10) 30 meq ONCE ONCE PO ; Start 06/29/16 at 08:30; Stop 06/29/16 at 08:31; Status UNV Lactulose 20 gm 20 gm ONCE ONCE PO ; Start 06/29/16 at 08:30; Stop 06/29/16 at 08 :31; Status UNV Magnesium Sulfate (Magnesium Sulfate 2 Gm/50 ml) 50 ml @ 25 mls/hr ONCE ONCE IVPB ; Start 06/29/16 at 09:00; Stop 06/29/16 at 10:59; Status UNV PJ ORTA MD Jun 29, 2016 08:41
[2016-06-29] MEDS: ESCITALOPRAM 10 MG TAB PO SCH (08:46)
[2016-06-29] MEDS: DOCUSATE SODIUM 100 MG CAP PO SCH ×2 (08:46→20:15)
[2016-06-29] MEDS: ASPIRIN (EC) 325 MG TAB PO SCH ×2 (08:46→20:15)
[2016-06-29] MEDS: CELECOXIB 200 MG CAP PO SCH (08:46)
[2016-06-29] MEDS: CHOLECALCIFEROL 1,000 UNIT TAB PO SCH (08:46)
[2016-06-29] MEDS: PREGABALIN 25 MG CAP PO SCH ×2 (08:46→20:29)
[2016-06-29] MEDS: ATENOLOL 25 MG TAB PO SCH (08:46)
[2016-06-29] MEDS: metFORMIN 500 MG TAB PO SCH ×2 (08:47→17:34)
[2016-06-29] MEDS: DICLOFENAC 0.1% 2.5 ML OPH BOTH EYES SCH ×2 (08:48→20:14)
--- NOTE | 2016-06-29 08:57 | PN ---
Date/Time of Note Date/Time of Note DATE: 06/29/16 TIME: 08:55 Assessment/Plan Lines/Catheters IV Catheter Type (from Nrsg): Saline Lock Arzola in Place (from Nrsg): No Assessment/Plan Assessment/Plan Stable POD #4, s/p right TKA -cont vancomycin -elevate extremity -stat doppler r/p DVT -ASA and SCDs -check AM labs. H&H low but possibly secondary to dilution from IVF -OOB with PT -d/c planning. Will plan to transfer to [facility] tomorrow. Subjective 24 Hr Interval Summary Doing well. No acute overnight events. Swelling and ecchymosis improving. Mild pain. Progressing with PT. Currently on Vanco. Exam/Review of Systems Vital Signs Vitals Vital Signs Date Time Temp Pulse Resp B/P Pulse Ox O2 Delivery O2 Flow Rate FiO2 06/29/16 08:28 97.8 75 18 143/63 99 06/28/16 20:00 2.0 06/27/16 10:00 Room Air Intake and Output 06/28/16 06/28/16 06/29/16 15:00 23:00 07:00 Intake Total 1050 ml 480 ml Output Total 650 ml 540 ml Balance 400 ml -60 ml Exam Free Text/Dictation Dressing dry Incision clean, dry, and intact without redness or drainage Mild ecchymosis, improving, minimal erythema. No warmth Thigh soft 5/5 Quadriceps, Tibialis Anterior, EHL, Gastroc, Soleus, Peroneals Normal sensation Palpable DT/PT, CR <2 sec No distal edema Results Result Diagram: 06/29/16 0430 06/29/16 0420 JOSIANE KRAUSE PA-C Jun 29, 2016 08:57
[2016-06-29] MEDS ORDERED: MAGNESIUM SULFATE 2 GM/50 ML 50 ML IVPB ONE (09:00)
[2016-06-29] MEDS: INSULIN ASPART [NOVOLOG] 3 ML PEN SC SCH ×3 (09:03→17:32)
--- NOTE | 2016-06-29 11:06 | RADRPT ---
PROCEDURE: US DVT. CLINICAL INDICATION: Leg swelling. TECHNIQUE: Multiple longitudinal and transverse images of the bilateral lower extremity veins were obtained with graf scale and color Doppler imaging. 2D grayscale measurements with compression, co tay Doppler flow, and augmentation was performed. The calf veins were interrogated as well. COMPARISON: No prior studies are available for comparison. FINDINGS: The bilateral common femoral, superficial femoral and popliteal veins are normally compressible thro ughout. Color flow demonstrates normal filling of the vessel. Normal waveforms are visualized and there is normal response to augmentation. The calf veins are visualized and are equally unremarkabl e. IMPRESSION: 1. No evidence of a deep vein thrombosis involving either lower extremity. RPTAT: QQ .Dandy Acosta MD, MD Date Time Electronically viewed and signed by .Dandy Acosta MD, on 06/29/2016 11:05 .R/
[2016-06-29] MEDS: glipiZIDE (XL) 5 MG TAB PO SCH (11:55)
[2016-06-29 13:12] VITALS: BP 118/64
[2016-06-29] MEDS: VANCOMYCIN 1.25 GM in SOD CHLORIDE 0.9% 250 ML IVPB SCH (13:13)
[2016-06-29] MEDS: HYDROCODONE/APAP (5/325) TAB PO PRN (14:11)
[2016-06-29 20:08] VITALS: BP 133/62; RESP 18
[2016-06-29] MEDS: ATORVASTATIN 40 MG TAB PO SCH (20:16)
[2016-06-30] MEDS: PANTOPRAZOLE (EC) 40 MG TAB PO SCH ×2 (05:29→17:27)
[2016-06-30] MEDS: BRIMONIDINE 0.2% 5 ML BTL BOTH EYES SCH ×3 (05:30→21:09)
[2016-06-30 05:51] LABS: HEMATOCRIT 24.5 % (42.0-52.0); HEMOGLOBIN 8.4 g/dl (14.0-18.0); POTASSIUM 4.3 mmol/L (3.5-5.1)
[2016-06-30 05:54] LABS: CALCIUM 8.3 mg/dl (8.4-10.2); CREATININE 0.75 mg/dl (0.61-1.24)
[2016-06-30 06:00] LABS: IRON 29 ug/dl (35-150)
[2016-06-30 06:09] LABS: TOTAL IRON BINDING CAPACITY 213 ug/dl (241-421)
[2016-06-30 07:23] VITALS: BP 167/71; RESP 16
[2016-06-30] MEDS: CHOLECALCIFEROL 1,000 UNIT TAB PO SCH (08:46)
[2016-06-30] MEDS: metFORMIN 500 MG TAB PO SCH ×2 (08:46→17:25)
[2016-06-30] MEDS: ASPIRIN (EC) 325 MG TAB PO SCH ×2 (08:46→21:09)
[2016-06-30] MEDS: CELECOXIB 200 MG CAP PO SCH (08:46)
[2016-06-30] MEDS: ESCITALOPRAM 10 MG TAB PO SCH (08:46)
[2016-06-30] MEDS: glipiZIDE (XL) 5 MG TAB PO SCH (08:46)
--- NOTE | 2016-06-30 08:46 | CONS ---
Date/Time of Note Date/Time of Note DATE: 06/30/16 TIME: 08:43 Assessment/Plan Assessment/Plan Additional Assessment/Plan 1. Right knee replacement, now with less swelling and ecchymoses, nivvs was negative 2. Hct is lower, ? transfuse (I favor), will check fecal occult 3. BP is sl inc, will inc caopten 4. Sugar control is better. Consultation Date/Type/Reason Admit Date/Time Jun 25, 2016 at 07:53 Type of Consultation: Internal medicine Detailed Summary ENT: sore throat (mild) Respiratory: No cough, No shortness of breath Cardiovascular: No chest pain Gastrointestinal: no complaints Genitourinary: no complaints Musculoskeletal: bone/joint pain (mild right knee pain) Exam/Review of Systems Vital Signs Vitals Vital Signs Date Time Temp Pulse Resp B/P Pulse Ox O2 Delivery O2 Flow Rate FiO2 06/30/16 07:23 98.3 72 16 167/71 98 06/29/16 20:00 2.0 06/27/16 10:00 Room Air Intake and Output 06/29/16 06/29/16 06/30/16 15:00 23:00 07:00 Intake Total 50 ml 1450 ml Output Total 1500 ml Balance 50 ml -50 ml Exam Neck: No jvd Respiratory: clear to auscultation Cardiovascular: regular rate and rhythm Gastrointestinal: soft, No distended, No tender Musculoskeletal: other (swelling right knee is less and echymoses is less) Extremities: edema (edema is less right lower extrem and now trace edema sacrum ) Results Result Diagram: 06/30/16 0445 06/30/16 0445 Results 24 hrs Laboratory Tests Test 06/29/16 11:54 06/29/16 16:56 06/29/16 20:13 06/30/16 04:45 Bedside Glucose 261 H 208 130 Anion Gap 14 Blood Urea Nitrogen 13 Calcium Level 8.3 L Carbon Dioxide Level 28 Chloride Level 100 Creatinine 0.75 Ferritin 62.3 Glucose Level 143 Hematocrit 24.5 L Hemoglobin 8.4 L Iron Level 29 L Percent Iron Saturation 14 L Potassium Level 4.3 Sodium Level 138 Total Iron Binding Capacity 213 L Test 06/30/16 07:56 Bedside Glucose 157 Medications Medications Current Medications Celecoxib (Celebrex) 200 mg DAILY PO Last administered on 06/29/16t 08:46; Admin Dose 200 MG; Start 06/26/16 at 09:00 Hydromorphone HCl (Dilaudid) 1 mg Q3H PRN IV PAIN LEVEL 8-10; Start 06/25/16 at 13:30 Ondansetron HCl (Zofran Inj) 4 mg Q6H PRN IV NAUSEA AND/OR VOMITING; Start 06/25 at 13:30 Bisacodyl (Dulcolax Supp) 10 mg Q12H PRN [place] CONSTIPATION; Start 06/25/16 at 13: 30 Magnesium Hydroxide (Milk Of Mag) 30 ml BID PRN PO CONSTIPATION Last administered on 06/29/16 05:39; Admin Dose 30 ML; Start 06/25/16 at 13:30 Sodium Biphosphate/ Sodium Phosphate (Fleet Enema) 133 ml DAILY PRN [place] CONSTIPATION; Start 06/25/16 at 13:30 Docusate Sodium (Colace) 100 mg BID PO Last administered on 06/29/16 08:46; Admin Dose 100 MG; Start 06/25/16 at 21:00 Diphenhydramine HCl (Benadryl) 25 mg Q6H PRN PO PRURITUS; Start 06/25/16 at 13: 30 Aspirin (Ecotrin) 325 mg BID PO Last administered on 06/29/16 20:15; Admin Dose 325 MG; Start 06/26/16 at 09:00 Pantoprazole (Protonix Tab) 40 mg BID@06,18 PO Last administered on 06/30/16 05 :29; Admin Dose 40 MG; Start 06/25/16 at 18:00 Pregabalin (Lyrica) 50 mg BID PO Last administered on 06/29/16 20:29; Admin Dose 50 MG; Start 06/25/16 at 21:00 Atenolol (Tenormin) 25 mg DAILY PO Last administered on 06/29/16 08:46; Admin Dose 25 MG; Start 06/25/16 at 16:00 Atorvastatin Calcium (Lipitor) 40 mg QHS PO Last administered on 06/29/16 20:16 ; Admin Dose 40 MG; Start 06/25/16 at 21:00 Brimonidine Tartrate (Alphagan 0.2%) 1 drop Q8 BOTH EYES Last administered on 05:30; Admin Dose 1 DROP; Start 06/25/16 at 22:00 Buspirone HCl (Buspar) 10 mg DAILY PRN PO ANXIETY; Start 06/25/16 at 14:00 Captopril (Capoten) 25 mg TID PO Last administered on 06/29/16 20:16; Admin Dose 25 MG; Start 06/25/16 at 16:00 Cholecalciferol (Vitamin D) 2,000 unit DAILY PO Last administered on 06/29/16 08:46; Admin Dose 2,000 UNIT; Start 06/25/16 at 16:00 Diclofenac Sodium (Voltaren 0.1%) 1 drop BID BOTH EYES Last administered on 06/29 20:14; Admin Dose 1 DROP; Start 06/25/16 at 21:00 Escitalopram Oxalate (Lexapro) 10 mg DAILY PO Last administered on 06/29/16 08: 46; Admin Dose 10 MG; Start 06/26/16 at 09:00 Miscellaneous Information 1 ea NOTE XX ; Start 06/25/16 at 14:00 Glucose (Glutose) 15 gm Q15M PRN PO DECREASED GLUCOSE; Start 06/25/16 at 14:00 Glucose (Glutose) 22.5 gm Q15M PRN PO DECREASED GLUCOSE; Start 06/25/16 at 14:00 Dextrose (D50w Syringe) 25 ml Q15M PRN IV DECREASED GLUCOSE; Start 06/25/16 at 14:00 Dextrose (D50w Syringe) 50 ml Q15M PRN IV DECREASED GLUCOSE; Start 06/25/16 at 14:00 Glucagon (Glucagen) 1 mg Q15M PRN IM DECREASED GLUCOSE; Start 06/25/16 at 14:00 Glucose (Glutose) 15 gm Q15M PRN BUCCAL DECREASED GLUCOSE; Start 06/25/16 at 14: 00 Clonidine (Catapres) 0.1 mg TID PO Last administered on 06/29/16 20:16; Admin Dose 0.1 MG; Start 06/25/16 at 18:00 Tramadol HCl (Ultram) 50 mg Q6 PRN PO MILD PAIN LEVEL 1-3 Last administered on 06/29/16 17:31; Admin Dose 50 MG; Start 06/27/16 at 12:00 Acetaminophen/ Hydrocodone Bitart 1 tab 1 tab Q6H PRN PO MODERATE PAIN LEVEL 4- 6 Last administered on 06/29/16 14:11; Admin Dose 1 TAB; Start 06/27/16 at 12:00 Vancomycin HCl/ Sodium Chloride (Vancocin/NS) 250 ml @ 83.333 mls/ hr Q24H IVPB Last administered on 06/29/16 13:13; Admin Dose 83.333 MLS/HR; Start at 13:00 Glipizide (Glucotrol Xl) 5 mg DAILY PO Last administered on 06/29/16 11:55; Admin Dose 5 MG; Start 06/29/16 at 09:00 Miscellaneous Information (*Rx Drug Level Order Reminder*) VANCOMYCIN TROUGH 06/30 AT 1200 ONCE ONCE XX ; Start 06/30/16 at 12:00; Stop 06/30/16 at 12:01 PJ ORTA MD Jun 30, 2016 08:46
[2016-06-30] MEDS: HYDROCODONE/APAP (5/325) TAB PO PRN ×2 (08:47→22:29)
[2016-06-30] MEDS: ATENOLOL 25 MG TAB PO SCH (08:47)
[2016-06-30] MEDS: PREGABALIN 25 MG CAP PO SCH ×2 (08:47→21:09)
[2016-06-30] MEDS: DICLOFENAC 0.1% 2.5 ML OPH BOTH EYES SCH ×2 (08:48→21:09)
[2016-06-30] MEDS: DOCUSATE SODIUM 100 MG CAP PO SCH ×2 (08:48→21:09)
[2016-06-30] MEDS: INSULIN ASPART [NOVOLOG] 3 ML PEN SC SCH ×3 (08:53→17:02)
[2016-06-30] MEDS ORDERED: FUROSEMIDE 20 MG INJ IV ONE (10:30)
[2016-06-30] MEDS ORDERED: POTASSIUM CHLORIDE (SR) 10 MEQ TAB PO ONE (10:30)
--- NOTE | 2016-06-30 11:01 | PN ---
Date/Time of Note Date/Time of Note DATE: 06/30/16 TIME: 10:59 Assessment/Plan Lines/Catheters IV Catheter Type (from Nrsg): Saline Lock Arzola in Place (from Nrsg): No Assessment/Plan Assessment/Plan POD #5, s/p right TKA, with post op anemia -continue Vancomycin -H&H low. Transfuse two units PRBCs -pain meds -OOB with PT -ASA/SCDs -dressing changed -plan to d/c to [facility] tomorrow Subjective 24 Hr Interval Summary Doing well. Denies significant pain. Developed post anemia with low H&H. Will likely require transfusion. Denies f/c. Denies HANSEN, dizziness, or fatigue. VSS, afebrile Exam/Review of Systems Vital Signs Vitals Vital Signs Date Time Temp Pulse Resp B/P Pulse Ox O2 Delivery O2 Flow Rate FiO2 06/30/16 07:23 98.3 72 16 167/71 98 06/29/16 20:00 2.0 06/27/16 10:00 Room Air Intake and Output 06/29/16 06/29/16 06/30/16 15:00 23:00 07:00 Intake Total 50 ml 1450 ml Output Total 1500 ml Balance 50 ml -50 ml Exam Free Text/Dictation Dressing dry Incision clean, dry, and intact without redness or drainage Ecchymosis and redness improving Thigh soft 5/5 Quadriceps, Tibialis Anterior, EHL, Gastroc, Soleus, Peroneals Normal sensation Palpable DT/PT, CR <2 sec No distal edema Results Result Diagram: 06/30/16 0445 06/30/16 0445 JOSIANE KRAUSE PA-C Jun 30, 2016 11:01
[2016-06-30 13:13] VITALS: BP 111/56
[2016-06-30] MEDS: VANCOMYCIN 1.25 GM in SOD CHLORIDE 0.9% 250 ML IVPB SCH (13:50)
[2016-06-30 20:17] VITALS: BP 126/71; RESP 18
[2016-06-30] MEDS: ATORVASTATIN 40 MG TAB PO SCH (21:09)
[2016-07-01 01:03] VITALS: BP 133/69; RESP 20
[2016-07-01 05:30] LABS: POTASSIUM 4.7 mmol/L (3.5-5.1)
[2016-07-01 05:33] LABS: CREATININE 0.78 mg/dl (0.61-1.24)
[2016-07-01 05:34] LABS: CALCIUM 8.7 mg/dl (8.4-10.2)
[2016-07-01] MEDS: PANTOPRAZOLE (EC) 40 MG TAB PO SCH (05:37)
[2016-07-01] MEDS: BRIMONIDINE 0.2% 5 ML BTL BOTH EYES SCH ×2 (05:37→13:32)
[2016-07-01 05:44] LABS: HEMATOCRIT 33.5 % (42.0-52.0); HEMOGLOBIN 11.5 g/dl (14.0-18.0)
[2016-07-01] MEDS ORDERED: VANCOMYCIN 750 MG in SOD CHLORIDE 0.9% 150 ML IVPB SCH (06:00)
[2016-07-01 08:00] VITALS: BP 143/63; RESP 20
--- NOTE | 2016-07-01 08:22 | CONS ---
Date/Time of Note Date/Time of Note DATE: 07/01/16 TIME: 08:19 Assessment/Plan Assessment/Plan Additional Assessment/Plan 1. Post op right knee with now less swelling and less echymoses 2. Hct noted after transfusion 3. Volume status is now nl-no edema 4. BP well controlled 5. DM well controlled 6. OK to dc per ortho and PT 7. Reasonable to changer vanco to zyvox for 1 week (rev with ortho) Consultation Date/Type/Reason Admit Date/Time Jun 25, 2016 at 07:53 Type of Consultation: Internal medicine Detailed Summary ENT: no complaints Respiratory: No shortness of breath Cardiovascular: No chest pain Gastrointestinal: no complaints Genitourinary: no complaints Musculoskeletal: bone/joint pain (mild right knee discomfort) Exam/Review of Systems Vital Signs Vitals Vital Signs Date Time Temp Pulse Resp B/P Pulse Ox O2 Delivery O2 Flow Rate FiO2 07/01/16 08:00 98.9 65 20 143/63 97 06/29/16 20:00 2.0 06/27/16 10:00 Room Air Intake and Output 06/30/16 06/30/16 07/01/16 15:00 23:00 07:00 Intake Total 1340 ml 1180 ml Output Total 1100 ml 1400 ml Balance 240 ml -220 ml Exam Neck: No jvd Respiratory: clear to auscultation Cardiovascular: regular rate and rhythm Gastrointestinal: soft Extremities: No edema (and no calf tend bilat, right knee is less swollen and less echymoses) Results Result Diagram: 07/01/16 0440 07/01/16 0440 Results 24 hrs Laboratory Tests Test 06/30/16 11:58 06/30/16 12:19 06/30/16 16:59 07/01/16 04:40 Vancomycin Level Trough 6.8 L Bedside Glucose 258 H 130 Anion Gap 18 H Blood Urea Nitrogen 16 Calcium Level 8.7 Carbon Dioxide Level 27 Chloride Level 100 Creatinine 0.78 Glucose Level 141 Hematocrit 33.5 #L Hemoglobin 11.5 #L Potassium Level 4.7 Sodium Level 140 Medications Medications Current Medications Celecoxib (Celebrex) 200 mg DAILY PO Last administered on 06/30/16t 08:46; Admin Dose 200 MG; Start 06/26/16 at 09:00 Hydromorphone HCl (Dilaudid) 1 mg Q3H PRN IV PAIN LEVEL 8-10; Start 06/25/16 at 13:30 Ondansetron HCl (Zofran Inj) 4 mg Q6H PRN IV NAUSEA AND/OR VOMITING; Start 06/25 at 13:30 Bisacodyl (Dulcolax Supp) 10 mg Q12H PRN [place] CONSTIPATION; Start 06/25/16 at 13: 30 Magnesium Hydroxide (Milk Of Mag) 30 ml BID PRN PO CONSTIPATION Last administered on 06/29/16 05:39; Admin Dose 30 ML; Start 06/25/16 at 13:30 Sodium Biphosphate/ Sodium Phosphate (Fleet Enema) 133 ml DAILY PRN [place] CONSTIPATION; Start 06/25/16 at 13:30 Docusate Sodium (Colace) 100 mg BID PO Last administered on 06/30/16 21:09; Admin Dose 100 MG; Start 06/25/16 at 21:00 Diphenhydramine HCl (Benadryl) 25 mg Q6H PRN PO PRURITUS; Start 06/25/16 at 13: 30 Aspirin (Ecotrin) 325 mg BID PO Last administered on 06/30/16 21:09; Admin Dose 325 MG; Start 06/26/16 at 09:00 Pantoprazole (Protonix Tab) 40 mg BID@06,18 PO Last administered on 07/01/16 05 :37; Admin Dose 40 MG; Start 06/25/16 at 18:00 Pregabalin (Lyrica) 50 mg BID PO Last administered on 06/30/16 21:09; Admin Dose 50 MG; Start 06/25/16 at 21:00 Atenolol (Tenormin) 25 mg DAILY PO Last administered on 06/30/16 08:47; Admin Dose 25 MG; Start 06/25/16 at 16:00 Atorvastatin Calcium (Lipitor) 40 mg QHS PO Last administered on 06/30/16 21:09 ; Admin Dose 40 MG; Start 06/25/16 at 21:00 Brimonidine Tartrate (Alphagan 0.2%) 1 drop Q8 BOTH EYES Last administered on 05:37; Admin Dose 1 DROP; Start 06/25/16 at 22:00 Buspirone HCl (Buspar) 10 mg DAILY PRN PO ANXIETY; Start 2/2/17 at 14:00 Cholecalciferol (Vitamin D) 2,000 unit DAILY PO Last administered on 06/30/16 08:46; Admin Dose 2,000 UNIT; Start 06/25/16 at 16:00 Diclofenac Sodium (Voltaren 0.1%) 1 drop BID BOTH EYES Last administered on 06/30 21:09; Admin Dose 1 DROP; Start 06/25/16 at 21:00 Escitalopram Oxalate (Lexapro) 10 mg DAILY PO Last administered on 06/30/16 08: 46; Admin Dose 10 MG; Start 06/26/16 at 09:00 Miscellaneous Information 1 ea NOTE XX ; Start 06/25/16 at 14:00 Glucose (Glutose) 15 gm Q15M PRN PO DECREASED GLUCOSE; Start 06/25/16 at 14:00 Glucose (Glutose) 22.5 gm Q15M PRN PO DECREASED GLUCOSE; Start 06/25/16 at 14:00 Dextrose (D50w Syringe) 25 ml Q15M PRN IV DECREASED GLUCOSE; Start 06/25/16 at 14:00 Dextrose (D50w Syringe) 50 ml Q15M PRN IV DECREASED GLUCOSE; Start 06/25/16 at 14:00 Glucagon (Glucagen) 1 mg Q15M PRN IM DECREASED GLUCOSE; Start 06/25/16 at 14:00 Glucose (Glutose) 15 gm Q15M PRN BUCCAL DECREASED GLUCOSE; Start 06/25/16 at 14: 00 Clonidine (Catapres) 0.1 mg TID PO Last administered on 06/30/16 08:47; Admin Dose 0.1 MG; Start 06/25/16 at 18:00 Tramadol HCl (Ultram) 50 mg Q6 PRN PO MILD PAIN LEVEL 1-3 Last administered on 06/29/16 17:31; Admin Dose 50 MG; Start 06/27/16 at 12:00 Acetaminophen/ Hydrocodone Bitart ([place] (5/325)) 1 tab Q6H PRN PO MODERATE PAIN LEVEL 4-6 Last administered on 06/30/16 22:29; Admin Dose 1 TAB; Start 06/27 at 12:00 Glipizide (Glucotrol Xl) 5 mg DAILY PO Last administered on 06/30/16 08:46; Admin Dose 5 MG; Start 06/29/16 at 09:00 Captopril 50 mg 50 mg TID PO Last administered on 06/30/16 21:10; Admin Dose 50 MG; Start 06/30/16 at 09:00 Vancomycin HCl/ Sodium Chloride (Vancocin/NS) 150 ml @ 75 mls/hr Q12H IVPB Last administered on 07/01/16 05:37; Admin Dose 75 MLS/HR; Start 07/01/16 at 06: 00 PJ ORTA MD Jul 01, 2016 08:21
[2016-07-01] MEDS: PREGABALIN 25 MG CAP PO SCH (08:34)
[2016-07-01] MEDS: metFORMIN 500 MG TAB PO SCH (08:34)
[2016-07-01] MEDS: CHOLECALCIFEROL 1,000 UNIT TAB PO SCH (08:34)
[2016-07-01] MEDS: ASPIRIN (EC) 325 MG TAB PO SCH (08:35)
[2016-07-01] MEDS: glipiZIDE (XL) 5 MG TAB PO SCH (08:35)
[2016-07-01] MEDS: ESCITALOPRAM 10 MG TAB PO SCH (08:37)
[2016-07-01] MEDS: CELECOXIB 200 MG CAP PO SCH (08:37)
[2016-07-01] MEDS: DOCUSATE SODIUM 100 MG CAP PO SCH (08:37)
[2016-07-01] MEDS: DICLOFENAC 0.1% 2.5 ML OPH BOTH EYES SCH (08:40)
[2016-07-01] MEDS: ATENOLOL 25 MG TAB PO SCH (08:40)
[2016-07-01] MEDS: INSULIN ASPART [NOVOLOG] 3 ML PEN SC SCH ×2 (08:46→12:56)
--- NOTE | 2016-07-01 08:46 | PN ---
Date/Time of Note Date/Time of Note DATE: 07/01/16 TIME: 08:43 Assessment/Plan Lines/Catheters IV Catheter Type (from Nrsg): Peripheral IV Arzola in Place (from Nrsg): No Assessment/Plan Assessment/Plan POD #6 s/p right TKA -pain meds -ASA/SCDs -OOB with PT -dressing changed -will plan to switch to Zyvox PO upon d/c -transfer to [facility] today -follow up with Dr. Montes in the office on 07/06/16 Subjective 24 Hr Interval Summary Doing well. No acute overnight events. H&H improved after transfusion yesterday. Will plan to transfer to [facility] today. Exam/Review of Systems Vital Signs Vitals Vital Signs Date Time Temp Pulse Resp B/P Pulse Ox O2 Delivery O2 Flow Rate FiO2 07/01/16 08:00 98.9 65 20 143/63 97 06/29/16 20:00 2.0 06/27/16 10:00 Room Air Intake and Output 06/30/16 06/30/16 07/01/16 15:00 23:00 07:00 Intake Total 1340 ml 1180 ml Output Total 1100 ml 1400 ml Balance 240 ml -220 ml Exam Free Text/Dictation Dressing dry Ecchymosis improving, no significant erythema Incision clean, dry, and intact without redness or drainage Thigh soft 5/5 Quadriceps, Tibialis Anterior, EHL, Gastroc, Soleus, Peroneals Normal sensation Palpable DT/PT, CR <2 sec No distal edema Results Result Diagram: 07/01/1643907/01/16439 JOSIANE KRAUSE PA-C Jul 01, 2016 08:46
[2016-07-01] MEDS ORDERED: LYRI25 PO (08:47)
[2016-07-01] MEDS ORDERED: LINE600T PO (08:47)
[2016-07-01] MEDS: HYDROCODONE/APAP (5/325) TAB PO PRN (09:27)
--- NOTE | 2016-07-01 12:49 | DS ---
DATE OF ADMISSION: 06/25/2016 DATE OF DISCHARGE: 07/01/2016 CONDITION ON DISCHARGE: Stable. ADMITTING DIAGNOSIS: Right knee osteoarthritis. DISCHARGE DIAGNOSIS: Status post right total knee arthroplasty. PROCEDURE PERFORMED: Right total knee arthroplasty. HOSPITAL COURSE: This is a 76-year-old male who was seen in the clinic initially complaining of right knee pain. X-rays showed advanced osteoarthritis of the right knee and it was thought he would benefit from a right total knee arthroplasty. On 06/25/2016, the patient was admitted and taken to the operating room where he underwent a right total knee arthroplasty. There were no intraoperative complications. The patient tolerated the procedure well. He was taken to the recovery room in stable condition. Pain was well controlled with oral pain medication. He was started on aspirin and SCDs for DVT prophylaxis. He remained hemodynamically stable and neurovascularly intact throughout his hospital stay. He did develop some postoperative anemia and required blood transfusion, however. Additionally, the patient did develop some ecchymosis and redness around incision and was given a course of vancomycin, which did improve his symptoms. On postoperative day 6, he was deemed stable for transfer. Prior to discharge, the incision was inspected and noted to be clean, dry and intact. Dressing changes were done prior to the patient going to [facility]. LABORATORY ANALYSIS: Upon discharge, hemoglobin 11.5, hematocrit 33.5. Chemistry panel was within normal limits. Blood glucose was 145 this morning. DISCHARGE MEDICATIONS 1. Aspirin 325 mg. 2. [place] 7.5/325 mg. 3. Zyvox 600 mg. 4. Pantoprazole 40 mg. 5. Lyrica 50 mg. 6. Tramadol 50 mg. Additionally, the patient is to resume all of his normal home medications. DISCHARGE INSTRUCTIONS: The patient will be transferred to [facility] in stable condition. He is to resume a normal diet. Activities include weightbearing as tolerated on the right lower extremity. He is to began therapy at [facility]. He will be transferred with the medications noted above. Additionally, he is to resume all of his normal home medications. The patient is to call the office or return to the emergency room for any concerns including increased redness, swelling, drainage, fever or any concerns regarding the operation or site of incision. FOLLOWUP: The patient is to follow up in the office with Dr. Montes on 2016. Dictated By: JOSIANE GUZMAN/ANNALISE Conf#: [id number] DID#: [id number] MTDD
== END 2016-07-01 14:58 | DRG 470 ==
LOC: REC 07:53 → EDSTATUS 10:00 → MS1 14:13
PROVIDERS: ADMIT Orthopaedic Surgery; ATTEND Orthopaedic Surgery
PROC: 0SRC0J9 Replacement of Right Knee Joint with Synthetic Substitute, Cemented, Open Approach (ICD-10-PCS; principal; 2016-06-25 10:00)
PROC: 30233N1 Transfusion of Nonautologous Red Blood Cells into Peripheral Vein, Percutaneous Approach (ICD-10-PCS; 2016-06-30)
DX: M17.11 Unilateral primary osteoarthritis, right knee (principal); E11.41 Type 2 diabetes mellitus with diabetic mononeuropathy; D64.9 Anemia, unspecified; E83.42 Hypomagnesemia; I10 Essential (primary) hypertension; E78.5 Hyperlipidemia, unspecified; Z79.4 Long term (current) use of insulin; Z98.62 Peripheral vascular angioplasty status; Z98.42 Cataract extraction status, left eye; Z98.41 Cataract extraction status, right eye; Z87.891 Personal history of nicotine dependence
CPT/HCPCS: 36430; 73560; 80048; 80202; 81001; 81003; 82040; 82728; 82947; 82962; 83540; 83735; 84100; 85014; 85018; 85025; 85049; 86850; 86870; 86900; 86901; 86920; 87081; 87086; 88304; 88311; 93970; 97110; 97116; 97162; 97167; 97530; J1940; Z7610; C1776; C9290; J0131; J0171; J0330; J0690; J0697; J0735; J1815; J1885; J2274; J2405; J3010; J3370; J3475; J7050; J7120; P9016

== ENCOUNTER → 2016-07-06 | Outpatient (CLI) | payer MEDICARE, MEDICAID ==
[~2016-07-06] MED LIST changes: -ASPI81TA3 PO
== END | disposition home or self-care (01) ==
LOC: HKI 09:46
PROVIDERS: ATTEND Orthopaedic Surgery
DX: Z47.1 Aftercare following joint replacement surgery (principal); Z96.651 Presence of right artificial knee joint; Z79.82 Long term (current) use of aspirin

== ENCOUNTER → 2016-07-13 | Outpatient (CLI) | payer MEDICARE, MEDICAID | END | disposition home or self-care (01) | LOC: HKI 13:26 | PROVIDERS: ATTEND Orthopaedic Surgery | DX: Z47.1 Aftercare following joint replacement surgery (principal); M17.11 Unilateral primary osteoarthritis, right knee; Z96.651 Presence of right artificial knee joint ==

== ENCOUNTER → 2016-07-27 | Outpatient (CLI) | payer MEDICARE, MEDICAID | END | disposition home or self-care (01) | LOC: HKI 11:23 | PROVIDERS: ATTEND Orthopaedic Surgery | DX: Z47.1 Aftercare following joint replacement surgery (principal); M17.11 Unilateral primary osteoarthritis, right knee; Z96.651 Presence of right artificial knee joint ==

== ENCOUNTER → 2016-09-07 | Outpatient (CLI) | payer MEDICARE, MEDICAID ==
--- NOTE | 2016-09-07 15:02 | RADRPT ---
PROCEDURE: Right knee radiographs. CLINICAL INDICATION: Right knee pain. Postop. TECHNIQUE: Three views. Weight bearing. Frontal, lateral, and patellar view. COMPARISON: 06/25/2016. FINDINGS: There is no fracture or dislocation. There is no joint effusion. Anterior surgical drain has been removed. There is a total right knee arthroplasty which appears satisfactory. There is no lytic or blastic lesion. There is no joint effusion. IMPRESSION: 1. Satisfactory postoperative appearance of the right knee. RPTAT: QQ .Cristofer Montiel MD, MD Date Time Electronically viewed and signed by .Cristofer Montiel MD, MD on 09/07/2016 15:02 .R/
== END | disposition home or self-care (01) ==
LOC: HKI 11:00
PROVIDERS: ATTEND Orthopaedic Surgery
DX: Z47.1 Aftercare following joint replacement surgery (principal); Z96.651 Presence of right artificial knee joint